=== PATIENT | male | born 1945 | race Caucasian/White ===

== ENCOUNTER 2021-03-26 12:40 | Emergency (ER) | payer MEDICARE ==
[~2021-03-26] VITALS: Ht 177.8 cm; Wt 72.6 kg
[2021-03-26] MEDS ORDERED: AMLODIPINE BES2.5 MG PO (13:10)
[2021-03-26] MEDS ORDERED: METHIMAZOLE5 MG PO (13:11)
[2021-03-26] MEDS ORDERED: GABAPENTIN400 MG PO (13:12)
[2021-03-26] MEDS ORDERED: ARTHRITIS PAIN100 GM TOP (13:13)
[2021-03-26] MEDS ORDERED: METHOCARBAMOL750 MG PO (13:14)
--- NOTE | 2021-03-26 14:04 | EKG ---
[facility] [address] [facility] [place] [address] Signed Sinus bradycardia Right bundle branch block Abnormal ECG No previous ECGs available Confirmed by KANG BAER MD ([id number]) on 03/26/2021 2:04:04 PM Electronically Signed By: KANG BAER MD 03/26/21 1404 PATIENT NAME: TANGELA SAUCEDO JOHN COLEMAN Electrocardiogram DATE OF : 41 PHYSICIAN: KANG BAER MD REPORT #: [id number] REPORT IS CONFIDENTIAL AND NOT TO BE RELEASED WITHOUT AUTHORIZATION
[2021-03-26] MEDS ORDERED: MELOXICAM7.5 MG PO (16:10)
[2021-03-26] MEDS ORDERED: MECLIZINE HCL25 MG PO (16:12)
[2021-03-26] MEDS ORDERED: ALEVE220 MG PO (16:13)
[2021-03-26] MEDS ORDERED: EPIN0.3P (16:14)
[2021-03-26] MEDS ORDERED: LIPITOR40 MG PO (16:28)
== END 2021-03-26 16:58 | disposition home or self-care (01) ==
LOC: ED 12:40
DX: I65.22 Occlusion and stenosis of left carotid artery (principal); I10 Essential (primary) hypertension; F17.200 Nicotine dependence, unspecified, uncomplicated; Z91.030 Bee allergy status; Z88.8 Allergy status to other drugs, medicaments and biological substances; Z79.899 Other long term (current) drug therapy
CPT/HCPCS: 70450; 80053; 84443; 85025; 93005; 93010; 93880; 99284-25

== ENCOUNTER 2021-04-02 18:43 | Emergency (ER) | payer MEDICARE ==
[~2021-04-02] VITALS: Ht 177.8 cm; Wt 68.0 kg
[~2021-04-02 18:43] MED LIST: ALEVE220 MG PO; AMLODIPINE BES2.5 MG PO; ARTHRITIS PAIN100 GM TOP; EPIN0.3P; GABAPENTIN400 MG PO; LIPITOR40 MG PO; MECLIZINE HCL25 MG PO; MELOXICAM7.5 MG PO; METHIMAZOLE5 MG PO; METHOCARBAMOL750 MG PO
--- OUTSIDE RECORDS SUMMARY | 2021-04-02 18:52 | XMS ---
PreManage Notification: TANGELA SAUCEDO Security Validation Intern Events No recent Security Events currently on file CRITERIA MET - [facility] - 2 Visits in 30 Days CARE PROVIDERS There are no care providers on record at this time. [place] has no Care Guidelines for this patient. [place] VISIT COUNT (12 MO.) 2 [facility] TOTAL 2 NOTE: Visits indicate total known visits. ED/C VISIT TRACKING (12 MO.) [facility] COMPLAINT: - BEE STING/ALLERGIC REACTION 03/26/2021 12:[address] [facility] [place] TYPE: Emergency COMPLAINT: - DIZZINESS, OFF BALANCE DIAGNOSES: - Other residential (current) drug therapy - Bee allergy status - Essential (primary) hypertension - Dizziness and giddiness - Nicotine dependence, unspecified, uncomplicated - Occlusion and stenosis of left carotid artery - Allergy status to other drugs, medicaments and biological substances INPATIENT VISIT TRACKING (12 MO.) No inpatient visits to display in this time frame [email or web address]
== END 2021-04-02 20:41 | disposition home or self-care (01) ==
LOC: ED 18:43
DX: T63.441A Toxic effect of venom of bees, accidental (unintentional), initial encounter (principal); I10 Essential (primary) hypertension; F17.200 Nicotine dependence, unspecified, uncomplicated; Z91.030 Bee allergy status; Z88.8 Allergy status to other drugs, medicaments and biological substances; Z79.899 Other long term (current) drug therapy
CPT/HCPCS: 99282; J7510

== ENCOUNTER 2022-03-22 13:50 | Inpatient (IN) | payer OTHER ==
[~2022-03-22] VITALS: Ht 177.8 cm; Wt 59.4 kg
[~2022-03-22 13:50] MED LIST changes: -ARTHRITIS PAIN100 GM TOP; +ARTHRITIS PAIN150 GM TOP; +MECLIZINE HCL12.5 MG PO; -MECLIZINE HCL25 MG PO
--- OUTSIDE RECORDS SUMMARY | 2022-03-22 14:13 | XMS ---
PreManage Notification: TANGELA SAUCEDO Security Racing Manager Events No recent Security Events currently on file CRITERIA MET - Group Notification CARE PROVIDERS There are no care providers on record at this time. [place] has no Care Guidelines for this patient. [place] VISIT COUNT (12 MO.) 3 [facility] TOTAL 3 NOTE: Visits indicate total known visits. ED/UCC VISIT TRACKING (12 MO.) 03/22/2022 13:52 [facility] [place] TYPE: Emergency COMPLAINT: - FATIGUE, COUGH, UNSTEADY 04/02/2021 18:44 [facility] [place] TYPE: Emergency COMPLAINT: - BEE STING/ALLERGIC REACTION DIAGNOSES: - Bee allergy status - Essential (primary) hypertension - Toxic effect of venom of bees, accidental (unintentional), initial encounter - Other alf (current) drug therapy - Allergy status to other drugs, medicaments and biological substances - Nicotine dependence, unspecified, uncomplicated 03/26/2021 12:42 [facility] [place] TYPE: Emergency COMPLAINT: - DIZZINESS, OFF BALANCE DIAGNOSES: - Other terminal gauger (current) drug therapy - Bee allergy status - Essential (primary) hypertension - Dizziness and giddiness - Nicotine dependence, unspecified, uncomplicated - Occlusion and stenosis of left carotid artery - Allergy status to other drugs, medicaments and biological substances INPATIENT VISIT TRACKING (12 MO.) No inpatient visits to display in this time frame [id number]
[2022-03-22] MEDS ORDERED: CLOPIDOGREL75 MG PO (14:30)
--- NOTE | 2022-03-22 18:00 | NUR ---
REPORT RECEIVED FROM CHALINO GANN.
--- NOTE | 2022-03-22 18:47 | NUR ---
PT BROUGHT TO ROOM 129 BY IVON PERALES. PT ALERT, ORIENTED, AND ABLE TO MOVE FROM GURNEY TO BED WITH LITTLE ASSISTANCE. PT SOB WHEN DONE, BUT ABLE TO REBOUND QUICKLY WHEN PLACED BACK ON BIPAP. PT SLEPT THROUGH SOME OF ADMISSION INTAKE, WITH QUESTIONS BEING COMPLETED BY YASEMIN. PT IN UNDERWEAR, NONSKID SOCKS. SIDE RAILS UP, CALL LIGHT WITHIN REACH. REMAINS IN ROOM WITH PT.
--- NOTE | 2022-03-22 19:25 | NUR ---
PT RESTING IN BED AT THIS TIME AWAKE AND ALERT ON THE BIPAP, FIO2 50%. SPO2 MAINTAINING AT 92-96%. PT IV'S FLUSHING EASILY, PT REPORTS BREATHING HAS IMPROVED, PT ORIENTED X4. PT REPORTS NO NEEDS AT THIS TIME WHEN ASKED AND REMAINS RESTING IN BED, BED ALARM ON, CALL LIGHT IN REACH, PT'S IN ROOM, WILL CONTINUE PLAN OF CARE.
--- NOTE | 2022-03-22 20:21 | NUR ---
PT LAYING IN BED ON THE BIPAP, PT AWAKE AND ALERT AT THIS TIME, SPO2 90-94%. PT VITALS TAKEN, TEMP OF 100.2 OBTAINED AXILLARY. PT REPORTS FEELING WARM WHEN ASKED. PT ASSESSMENT COMPLETED AT THIS TIME (SEE CHART). PT ALERT AND ORIENTED X4, HEART RYTHM TACHYCARDIC AND IRREGULAR, LUNGS CLEAR IN UPPER LOBES AND DIMINISHED WITH FINE CRACKLES IN THE BASES BILATERALLY. PT RESPIRATIONS LABORED WHILE ON BIPAP, PT REPORTS BREATHING HAS IMPROVED. PT RADIAL PULSES STRONG, PEDAL PULSES +1, NO EDEMA PRESENT. PT DENIES N&T. PT APPEARS RESTLESS IN BED AT THIS TIME BUT DENIES HAVING ANY PAIN. PT REPOSITIONED IN BED WITH ASSISTANCE FROM CHALINO DREW. SCHEDULED PO MEDICATION THEN ADMINISTERED (SEE MAR). PT ABLE TO MAINTAIN SPO2 OF 88-90% ON 6L O2 NC WHILE TAKING PO MEDICATION. PT PLACED BACK ON BIPAP AND REMAINS IN BED RESTING. NO FURTHER NEEDS REPORTED AT THIS TIME, CALL LIGHT IN REACH, BED IN LOWEST POSITION, BED ALARM ON, PT'S IN ROOM, WILL CONTINUE PLAN OF CARE.
--- NOTE | 2022-03-22 20:46 | NUR ---
PT REMOVED BIPAP AT THIS TIME, PT SITTING UP IN BED AWAKE AND ALERT. PT PLACED ON 6L OXYMASK MOMENTARILY HE REQUESTED A BREAK FROM THE BIPAP. SPO2 NOTED TO SLOWLY DECREASE FROM 94 DOWN TO 87-88% AND MAINTAIN. RESPIRATIONS NOTED TO BE LABORED, PT REPORTS BREATHING FEELS IMPROVED AND DENIES SHORTNESS OF BREATH WHEN ASKED. PT PLACED BACK ON THE BIPAP AT IT'S PREVIOUS SETTINGS. PT EDUCATED ON PURPOSE OF BIPAP, PT WILLING TO LEAVE BIPAP ON. PT REPORTS NO FURTHER NEEDS AT THIS TIME WHEN ASKED AND IS NOW RESTING IN BED SITTING UP. CALL LIGHT IN REACH, BED IN LOWEST POSITION, BED ALARM ON, WILL CONTINUE PLAN OF CARE.
--- NOTE | 2022-03-22 21:15 | NUR ---
DR. GUY UPDATED ON PT REGARDING HEART RATE, TEMPERATURE OF 100.2, AND SHORTNESS OF BREATH/RESTLESSNESS WHILE ON THE BIPAP. NEW ORDERS GIVEN TO ADMINISTER 25MG TOPROL XL ONCE AND TO ADMINISTER 1-2MG MORHPINE IV Q4PRN. WILL CONTINUE PLAN OF CARE.
--- NOTE | 2022-03-22 23:10 | NUR ---
PT SLEEPING IN BED AT THIS TIME ON THE BIPAP. SETTINGS UNCHANGED, SPO2 90-94%. RESPIRATIONS NOTED, PT IN NO APPARENT DISTRESS AT THIS TIME, NO NEEDS ASSESSED, WILL CONTINUE PLAN OF CARE.
--- NOTE | 2022-03-23 00:36 | NUR ---
PT LAYING IN BED SLEEPING ON THE BIPAP AT PREVIOUS SETTINGS OF 50% FIO2, 16/8. PT SPO2 92%. PT AWOKE BRIEFLY AT THIS TIME AND REPORTED NO NEEDS. PT HEAD OF BED LOWERED FOR COMFORT. AFTERWARDS VITALS TAKEN, PT AFEBRILE. ASSESSMENT THEN COMPLETED (SEE CHART). PT HEART RATE REMAINS IRREGULAR, LUNGS CLEAR IN UPPER LOBES BILATERALLY, DIMINISHED WITH CRACKLED IN THE RIGHT BASE AND DIMINISHED WITH FINE CRACKLES IN THE LEFT BASE. ACTIVE BOWEL TONES PRESENT. RADIAL PULSES STRONG, PEDAL PULSES +1, BRISK CAPILLARY REFILL PRESENT. PT BACK TO SLEEP AT THIS TIME AND IS IN NO APPARENT DISTRESS. CALL LIGHT WITHIN REACH, BED IN LOWEST POSITION, BED ALARM ON, PT'S IN ROOM SLEEPING IN THE RECLINER, WILL CONTINUE PLAN OF CARE.
--- NOTE | 2022-03-23 02:05 | NUR ---
BIPAP ALARMING, PT LAYING IN BED SLEEPING, BIPAP NOTED TO BE OFF OF FACE. PT AWOKE EASILY AND REPORTED NO NEEDS WHEN ASKED. BIPAP PLACED BACK ON PT. BIPAP ON AT PREVIOUS SETTINGS, SPO2 92-93%. PT REMAINS RESTING IN BED AND IS NOW BACK TO SLEEP, CALL LIGHT IN REACH, BED IN LOWEST POSITION, WILL CONTINUE PLAN OF CARE.
--- NOTE | 2022-03-23 04:07 | NUR ---
PT LAYING IN BED AWAKE AND ALERT ON THE BIPAP. RT IN ROOM COMPLETING DUONEB. PT APPEARS RESTLESS AND REPORTS SHORTNESS OF BREATH WHEN ASKED. PT REPORTS BREATHING FEELS IMPROVED FROM WHEN HE FIRST ARRIVED. VITALS TAKEN (SEE CHART). PRN MORPHINE ADMINISTERED AFTERWARDS FOR SHORTNESS OF BREATH. ASSESSMENT THEN COMPLETED (SEE CHART). AFTER ASSESSMENT PT REPORTS NO NEEDS AND DENIES THE NEED TO VOID. PT REMAINS RESTING IN BED WITH EYES CLOSED AT THIS TIME, CALL LIGHT IN REACH, BED IN LOWEST POSITION, BED ALARM ON, WILL CONTINUE PLAN OF CARE.
--- NOTE | 2022-03-23 05:22 | NUR ---
PT LAYING IN BED SLEEPING ON THE BIPAP AT THIS TIME. SETTINGS UNCHANGED, SPO2 92-95%. PT IN NO APPARENT DISTRESS, RESPIRATIONS NOTED, PT LEFT UNDISTURBED AT THIS TIME. CALL LIGHT IN REACH, BED IN LOWEST POSITION, BED ALARM ON, WILL CONTINUE PLAN OF CARE.
--- NOTE | 2022-03-23 05:52 | NUR ---
PT LAYING IN BED AWAKE AND ALERT AT THIS TIME. PT ASKED IF HE NEEDED TO VOID, PT STATED YES. PT ASSISTED UP TO USE THE URINAL. PT 1 PERSON ASSIST, PT ABLE TO VOID 100 ML OF CONCENTRATED URINE, HR NOTED TO INCREASE TO THE 130'S WHILE STANDING, PT DENIED SHORTNESS OF BREATH WHILE ON THE BIPAP. PT NOW BACK IN BED RESTING AND REPORTS NO FURTHER NEEDS. CALL LIGHT WITHIN REACH, BED IN LOWEST POSITION, WILL CONTINUE PLAN OF CARE.
--- NOTE | 2022-03-23 06:20 | NUR ---
PT PLACED ON THE OXYMASK PT REQUESTED A BREAK FROM THE BIPAP. OXYMASK TITRATED UP TO 10L TO MAINTAIN SPO2 OF 90-92%. PT DENIES SHORTNESS OF BREATH WHEN ASKED, PT REPORTS NO FURTHER NEEDS AT THIS TIME, CALL LIGHT WITHIN REACH, BED IN LOWEST POSTIION, WILL CONTINUE PLAN OF CARE.
--- NOTE | 2022-03-23 06:34 | NUR ---
PT LAYING IN BED SLEEPING ON THE OXYMASK AT 10L. SPO2 AT 87-88% AND MAINTAINING. PT AWOKE EASILY AND WAS INFORMED THAT THE BIPAP WOULD BE PLACED BACK ON. BIPAP PLACED BACK AT 16/8 FIO2 NOW AT 40%. SPO2 MAINTAINING AT 91%. PT REPORTS NO NEEDS WHEN ASKED AND RETURNED BACK TO SLEEP, WILL CONTINUE PLAN OF CARE. CALL LIGHT IN REACH, BED IN LOWEST POSITION, BED ALARM ON.
--- NOTE | 2022-03-23 07:55 | NUR ---
CHECKED ON PT. LAYING IN BED WITH NO COVERS ON AND BIPAP IN PLACE. STATES HE IS COMFORTABLE AND FEELS BETTER THAN YESTERDAY. IN ROOM AND STATES SHE ALSO FEELS BETTER TODAY AND WILL BE TAKING THEIR TRUCK HOME SHORTLY TO THEIR SON.
--- NOTE | 2022-03-23 08:23 | NUR ---
PATIENT RESTING IN BED, BIPAP IN PLACE, VITALS CHARTED. IN ROOM. ICE CHIPS PROVIDED PER REQUEST. CALL [facility] IN REACH
--- NOTE | 2022-03-23 08:38 | NUR ---
TRIED PT ON NASAL CANULA AND WAS ABLE TO HOLD SATS FOR APPROX 5 MINS THEN COULD NOT MAINTAIN SATS >90 ON 15L OXY MASK. PLACED BACK ON 45% BIPAP AND IMMEDIATLY TO 90'S. PT UNCOMFORTABLE IN BED BUT DENIES WANTING TO LAY FLATTER HE IS SITTING STRAIGHT UP IN BED. DR GUY IN ROOM DISCUSSING WITH PT AND . ANSWERED WIFES QUESTIONS AFTER DR GIBSON. IS WRITING THINGS DOWN TO TELL THEIR SON.
--- NOTE | 2022-03-23 09:43 | NUR ---
ASSISTED PT TO STAND AT BEDSIDE AND USE URINAL. PT NOTED TO HAVE HAVE CONCENTRATED 200ML URINE OUT. ALSO NOTED TO HAVE RUN OF SVT HR IN 150'S, METOPROLOL DISCONTINUED, WILL DISCUSS WITH .
--- NOTE | 2022-03-23 12:09 | NUR ---
PT CONTINUES TO REST WITH EYES CLOSED AND BIPAP IN PLACE. TOELRATING WELL. HAS GONE HOME.
--- NOTE | 2022-03-23 12:16 | NUR ---
PATIENT RESTING IN BED, BIPAP IN PLACE. VITALS CHARTED. CALL LIGHT IN EASY REACH
--- NOTE | 2022-03-23 13:52 | NUR ---
PT AWAKE AND WANTED THE BIPAP OFF FOR A LITTLE WHILE. MAINTAINING >90 ON 12L OXY MASK, HE IS A MOUTH BREATHER. GIVEN SIPS OF ICE WATER AND ORDERED A SANDWHICH FOR LUNCH. PT STATES HE DOES NOT NEED TO USE URINAL ATT.
--- NOTE | 2022-03-23 14:46 | NUR ---
PT ATE HALF A SANDWICH FOR LUNCH AND DRANK A MILK, THE FIRST OF WHICH HE SPILLED IN HIS BED. STATES HE HASN'T EATEN IN 3-4 DAYS DUE TO NOT FEELING WELL. AFTER EATING ASSISTED PT TO RESTROOM, TOLERATED OK ON 6 LNC BUT PLACED BACK ON 12L OXYMASK FOR SIDE LAYING ECHO, SATS >90. PT HAD 275ML DARK URINE OUT.
--- NOTE | 2022-03-23 15:24 | NUR ---
ADMINISTERED SCHEDULED GABAPENTIN, PT THEN HAD A COUGHING FIT WHICH HE WAS ABLE TO COUGH UP A LARGE QTY GREEN\YELLOW SPUTUM. RT IN ROOM TO DO NEB TREATMENT.
[2022-03-23] MEDS ORDERED: VENTOLIN HFA18 GM INH (16:45)
[2022-03-23] MEDS ORDERED: ADULT ASPIRIN R81 MG PO (16:46)
[2022-03-23] MEDS ORDERED: REFRESH TEARS15 ML OP (16:54)
--- NOTE | 2022-03-23 17:02 | NUR ---
PT SITTING UPRIGHT IN BED TALKING WITH . PT DENIES CONCERNS AND SATS ARE 98 ON OXY MASK. ASSISTED TO STAND AT BEDSIDE TO USE URINAL. 160 DARK URINE OUT.
--- NOTE | 2022-03-23 19:06 | EKG ---
[facility] [address] [place] [address] Signed Sinus tachycardia with premature atrial complexes Right bundle branch block Abnormal ECG When compared with ECG of 26-MAR-2021 13:41, premature atrial complexes are now present Vent. rate has increased BY 63 BPM Confirmed by KANG BAER MD ([id number]) on 03/23/2022 7:06:31 PM Electronically Signed By: KANG BAER MD 03/23/22 1906 PATIENT NAME: LEWISTANGELA JOHN COLEMAN Electrocardiogram DATE OF : 41 PHYSICIAN: KANG BAER MD REPORT #: [id number] REPORT IS CONFIDENTIAL AND NOT TO BE RELEASED WITHOUT AUTHORIZATION
--- NOTE | 2022-03-23 19:18 | NUR ---
REPORT RECEIVED FROM BEN RN, WILL CONTINUE PLAN OF CARE.
--- NOTE | 2022-03-23 19:55 | NUR ---
PT LAYING IN BED ON THE BIPAP SLEEPING. SETTINGS AT 16/8, FIO2 45%, SPO2 96%. PT AWOKE EASILY AT THIS TIME AND DENIED ANY PAIN OR SHORTNESS OF BREATH WHEN ASKED. PT VITALS TAKEN AT THIS TIME AND ASSESSMENT COMPLETED (SEE CHART). PUT AWAKE AND ALERT, HEART RYTHM REGULAR, LUNGS DIMINISHED IN THE RIGHT UPPER LOBE AND DIMINISHED WITH CRACKLES IN THE RIGHT BASE. CLEAR/SHALLOW IN THE LEFT UPPER LOBE AND DIMINISHED WITH FINE CRACKLES IN THE LEFT BASE. ABDOMEN SOFT, BOWEL TONES ACTIVE. PULSES STRONG, CAPILLARY REFILL BRISK. PT DENIES N&T. PT REPORTS NO FURTHER NEEDS AND RETURNED BACK TO SLEEP, FIO2 TITRATED DOWN TO 40% ON THE BIPAP, SPO2 REMAINS AT 95-96%. WILL CONTINUE PLAN OF CARE. CALL LIGHT IN REACH, BED IN LOWEST POSITION, PT'S IN ROOM IN THE BEDSIDE RECLINER.
--- NOTE | 2022-03-23 21:04 | NUR ---
PT IN BED SLEEPING ON THE BIPAP AT PREVIOUS SETTINGS, SPO2 94-96%. PT AWOKE EASILY AT THIS TIME. BIPAP REMOVED, PT PLACED ON 8L O2 HIGHFLOW NC. SPO2 MAINTAINING AT 90-91%. PT ALERT AND ORIENTED X4, DENIES ANY PAIN AT THIS TIME AND REPORTS HIS BREATHING FEELS IMPROVED FROM WHEN HE FIRST ARRIVED. VITALS TAKEN AND SCHEDULED PO AND IV MEDICATIONS ADMINISTERED (SEE MAR). IV ABX NOW INFUSING AT ORDERED RATE. PT UP TO THE BEDSIDE TO VOID INTO URINAL, 300ML CONCENTRATED URINE. PT ABLE TO GET BACK INTO THE BED AND IS NOW RESTING. PT REPORTS NO NEEDS AT THIS TIME WHEN ASKED, PT REMAINS ON 8L O2 HIGHFLOW NC, SPO2 90-91%. IV ABX INFUSING. CALL LIGHT IN REACH, BED IN LOWEST POSITION, PT'S REMAINS IN ROOM AT THE BEDSIDE RECLINER, WILL CONTINUE PLAN OF CARE.
--- NOTE | 2022-03-23 21:30 | NUR ---
IV ABX COMPLETED, PT SALINE LOCKED. PT REMAINS ON 8L O2 HIGHFLOW NC, SPO2 92%. PT DENIES SHORTNESS OF BREATH, RESPIRATIONS UNLABORED. PT REPORTS NO FURTHER NEEDS AT THIS TIME AND REMAINS RESTING IN BED. CALL LIGHT IN REACH, BED IN LOWEST POSITION.
--- NOTE | 2022-03-23 22:30 | NUR ---
CALL LIGHT USED, PT STATED HE SPILLED HIS CUP OF WATER. PT AWAKE AND ALERT LAYING IN BED ON 8L O2 HIGHFLOW NC, 92% SPO2. PT RESPIRATIONS UNLABORED, PT DENIES SHORTNESS OF BREATH. LINENS CHANGED, PT NOW RESTING IN BED AND REPORTS NO FURTHER NEEDS. ICE WATER PROVIDED, CALL LIGHT IN REACH, WILL CONTINUE PLAN OF CARE.
--- NOTE | 2022-03-23 23:35 | NUR ---
PT LAYING IN BED SLEEPING, PT TITRATED DOWN TO 6L O2 HIGHFLOW NC, SPO2 MAINTAINING AT 94-95% NOW. PT IN NO APPARENT DISTRESS, NO NEEDS ASSESSED, PT REMAINS SLEEPING, RESPIRATIONS UNLABORED, WILL CONTINUE PLAN OF CARE.
--- NOTE | 2022-03-24 00:05 | NUR ---
PT LAYING IN BED SLEEPING ON 6L O2 HIGHFLOW NC. SPO2 92%, RESPIRATIONS UNLABORED. PT AWOKE BRIEFLY AND DENIED ANY NEEDS WHEN ASKED. VITALS TAKEN AND ASSESSMENT COMPLETED (SEE CHART). PT RETURNED BACK TO SLEEP SHORTLY AFTER. NO FURTHER NEEDS ASSESSED AT THIS TIME, CALL LIGHT IN REACH, WILL CONTINUE PLAN OF CARE.
--- NOTE | 2022-03-24 01:15 | NUR ---
pt O2 SAT 85% ON 6L NC. PER PRIMARY RN pt PLACED BACK ON BiPAP, TOLERATED WELL. NO REQUESTS CALL LIGHT WITHIN REACH.
--- NOTE | 2022-03-24 02:40 | NUR ---
PT LAYING IN BED SLEEPING ON THE BIPAP AT PREVIOUS SETTINGS. SPO2 94%. PT RESPIRATIONS NOTED, PT IN NO APPARENT DISTRESS AND WAS LEFT UNDISTURBED. CALL LIGHT IN REACH, WILL CONTINUE PLAN OF CARE.
--- NOTE | 2022-03-24 03:40 | NUR ---
PT USED CALL LIGHT. PT ON THE BIPAP AT PREVIOUS SETTINGS, SPO2 94-95%. PT STATED HE NEEDED TO VOID. PT USED THE URINAL TO VOID 275ML, MINIMAL ASSISTANCE NEEDED. PT GIVEN A DRINK OF WATER AND THEN PLACED BACK ON THE BIPAP AT ITS PREVIOUS SETTINGS. VITALS TAKEN AND ASSESSMENT COMPLETED (SEE CHART). PT LUNGS CLEAR IN UPPER LOBES AND DIMINISHED/FINE CRACKLES IN THE BASES BILATERALLY. RT IN ROOM AT THIS TIME TO ADMINISTER DUONEB. PT REPORTS NO FURTHER NEEDS AND IS RESTING IN BED, WILL CONTINUE PLAN OF CARE. CALL LIGHT IN REACH, BED IN LOWEST POSITION.
--- NOTE | 2022-03-24 04:36 | NUR ---
PT SPO2 NOTED TO BE 88-89%, PT ON THE BIPAP AT 40%. FIO2 TITRATED UP TO 45%, SPO2 NOW MAINTAINING AT 90-91%. PT REMAINS ASLEEP ON THE BIPAP IN NO APPARENT DISTRESS. CALL LIGHT IN REACH, BED IN LOWEST POSITION.
--- NOTE | 2022-03-24 05:31 | NUR ---
PT LAYING IN BED SLEEPING ON THE BIPAP. SPO2 96%. PT IN NO APPARENT DISTRESS AT THIS TIME. PT FIO2 TITRATED DOWN TO 35%, SPO2 MAINTAINING AT 95-96%. PT AWOKE BRIEFLY AFTERWARDS AND REPORTED NO NEEDS, WILL CONTINUE PLAN OF CARE. CALL LIGHT IN REACH.
--- NOTE | 2022-03-24 06:26 | NUR ---
PT USED CALL LIGHT, PT ON THE BIPAP AT PREVIOUS SETTINGS, PT STATED HE NEEDED TO VOID. PT UP TO VOID AT THE BEDSIDE USING THE URINAL. ATTENDS CHANGED AT THIS TIME. PT TAKEN OFF BIPAP AND PLACED ON 8L O2 HIGHFLOW NC, SPO2 MAINTAINING AT 91-93%. PT NOW RESTING IN BED AND REPORTS NO FURTHER NEEDS, CALL LIGHT IN REACH, BED IN LOWEST POSITION, PT'S IN ROOM, WILL CONTINUE PLAN OF CARE.
--- NOTE | 2022-03-24 07:30 | NUR ---
rREPORT RECIEVED, CARE OF PT ASSUMED AT THIS TIME. PT AWAKE IN ROOM WITH AT BEDSIDE. DENIES PAIN OR SHORTNESS OF BREATH. SPO2 = 90% ON 8 L NC. PT AGREES TO GO BACK ON BIPAP AT THIS TIME WHILE WAITING FOR BREAKFAST
--- NOTE | 2022-03-24 07:41 | NUR ---
PATIENT AWAKE IN BED, BIPAP IN PLACE. IN ROOM. VITALS CHARTED AND ROOM TIDIED. PATIENT STATES "I'M READY TO GO HOME" WHEN ASKED HOW HE'S FEELING THIS MORNING. CALL LIGHT IN EASY REACH. NO OTHER NEEDS
--- NOTE | 2022-03-24 08:34 | NUR ---
IN ROOM FOR MEDICATION ADMINSITRATION AND ASSESSMENT. PT ALERT AND ORIENTED, ANSWERING ALL QUESTIONS APPROPRIATELY. LUNGS SOUND TIGHT AND DIMINISHED IN BILATERAL LUNG BASES. PT CURRENTLY ON 8 L NC WITH SPO2 = 93%. ALL DISTAL PULSES STRONG. PT SHORT OF BREATH WITH MILD ACTIVITY IN THE BED. IV ABX NOW INFUSING. PLAN OF CARE FOR DAY ESTABLISHED. CALL LIGHT WITHIN REACH. WILL CONTINUE TO MONITOR.
--- NOTE | 2022-03-24 09:10 | NUR ---
RT IN ROOM AT THIS TIME TO GIVE PT A BREATHING TREATMENT
--- NOTE | 2022-03-24 10:15 | NUR ---
HR OPERATIONS ADVISOR IN ROOM TO ASSESS PT AT THIS TIME.
--- NOTE | 2022-03-24 10:50 | NUR ---
PT UP AT BEDSIDE TO VOID INTO URINAL. WEAKNESS AND TACHYPNEA NOTED ON EXERTION. SPO2 AT 88% ON 6 L NC WHILE PT VOIDED. PT NOW BACK IN BED, TURNED OXYGEN UP TO 8 L TO HELP PT RECOOPERATE.
--- NOTE | 2022-03-24 11:23 | NUR ---
DR BAER IN TO ASSESS PT AT THIS TIME. PLAN OF CARE ESTABLISHED AND ALL PT AND 'S QUESTIONS ANSWERED.
[2022-03-24] MEDS ORDERED: NICORETTE4 M1 BUCCAL (11:31)
[2022-03-24] MEDS ORDERED: STIOLTO RESPIMAT4 GM INH (11:38)
--- NOTE | 2022-03-24 11:51 | NUR ---
PT AMBULATED TO BATHROOM TO HAVE BOWEL MOVEMENT. ON 12 L NC WITH AMBULATION. PT SHORT OF BREATH AND DIZZY WITH EXERTION. PT NOW BACK IN BED. ASSESSMENT COMPLETED. BACK ON 8 L NC. EATING LUNCH AT THIS TIME. CALL LIGHT WITHIN REACH. WILL CONTINUE TO MONITOR.
--- NOTE | 2022-03-24 13:43 | NUR ---
PT GIVEN INSULIN PER SLIDING SCALE FOR BLOOD GLUCOSE OF 241. DISCUSSED MEDICATION AND BLOOD SUGAR CHECKS WITH PT. UNDERSTANDING MINIMAL. WILL CONTINUE TO REINFORCE. CALL LIGHT WITHIN REACH. WILL CONTINUE TO MONITOR.
--- NOTE | 2022-03-24 15:37 | NUR ---
BEDBATH GIVEN, PATIENT WAS ABLE TO DO MOST OF HIS OWN CARE. LINEN CHANGED. CALL LIGHT IN EASY REACH. BACK IN ROOM AT THIS TIME.
--- NOTE | 2022-03-24 16:27 | NUR ---
IN ROOM FOR MED ADMINISTRATION AND ASSESSMENT. PT ALERT AND ORIENTED. AMUBLATED TO BATHROOM ON 10 L NC WITH ONE PERSON ASSIST. NOW BACK IN BED. AT BEDSIDE. CALL LIGHT WITHIN REACH. RT IN ROOM FOR BREATHING TX
--- NOTE | 2022-03-24 19:20 | NUR ---
REPORT RECEIVED FROM DAYSHIFT RN, PT RESTING IN BED AT THIS TIME ON THE HIGHFLOW NC AT 7L. SPO2 92-94%, PT DENIES SHORTNESS OF BREATH AT THIS TIME WHEN ASKED AND REPORTS NO NEEDS, CALL LIGHT WITHIN REACH, BED IN LOWEST POSITION, PT'S IN ROOM AT THE BEDSIDE, WILL CONTINUE PLAN OF CARE.
--- NOTE | 2022-03-24 21:05 | NUR ---
CALL LIGHT USED BY PT, PT REPORTS NEEDED TO USE THE BATHROOM TO VOID. PT OXYGEN TITRATED UP TO 15L VIA HIGHFLOW NC, PT ABLE TO WALK TO THE BATHROOM 1 PERSON ASSIST TO VOID. PT ASSISTED BACK TO THE BED AND IS NOW RESTING, PT DENIES SHORTNESS OF BREATH OR LIGHTHEADEDNESS, GAIT SLIGHTLY UNSTEADY. PT TITRATED BACK DOWN TO 8L O2 HIGHLOW NC, SPO2 92% AT REST. VITALS TAKEN AT THIS TIME (SEE CHART). SCHEDULED MEDICATIONS ADMINISTERED AT THIS TIME (SEE MAR), IV ABX INFUSING AT ORDERED RATE, PT RECEIVED 2 UNITS OF INSULIN PER SLIDING SCALE (SEE MAR). PT ASSESSMENT COMPLETED AFTERWARDS, PT ALERT AND ORIENTED X4, LUNGS CLEAR IN UPPER LOBES BILATERALLY, FINE CRACKLES IN THE BASES BILATERALLY, HEART RYTHM REGULAR, BOWEL TONES ACTIVE, PULSES STRONG, PT DENIES N&T TO EXTREMITIES. PT REPORTS NO FURTHER NEEDS AT THIS TIME AND IS NOW RESTING IN BED, IV ABX INFUSING. CALL LIGHT IN REACH, PT'S IN ROOM AT THE BEDSIDE, WILL CONTINUE PLAN OF CARE.
--- NOTE | 2022-03-24 22:50 | NUR ---
PT LAYING IN BED SLEEPING, 8L NC IN PLACE, SPO2 95%. PT IN NO APPARENT DISTRESS, RESPIRATIONS UNLABORED, PT LEFT UNDISTURBED. OXYGEN TITRATED DOWN TO 6L O2 HIGHFLOW NC. CALL LIGHT IN REACH, WILL CONTINUE PLAN OF CARE.
--- NOTE | 2022-03-25 00:55 | NUR ---
PT LAYING IN BED SLEEPING ON 6L O2 HIGHFLOW NC. SPO2 96. PT IN NO APPARENT DISTRESS, RESPIRATIONS UNLABORED. PT AWOKE BRIEFLY AND REPORTED NO NEEDS. VITALS TAKEN AND ASSESSMENT COMPLETED (SEE CHART). WILL CONTINUE PLAN OF CARE. CALL LIGHT IN REACH, BED IN LOWEST POSITION.
--- NOTE | 2022-03-25 02:18 | NUR ---
PT'S MONITORS NOTED TO BE OFF, PT FOUND STANDING UP AT THE BEDSIDE. PT STATED HE NEEDED TO VOID, PT INSTRUCTED TO USE HIS CALL LIGHT FOR ASSISTANCE. PT PLACED ON 15L HIGHFLOW NC. PT ABLE TO WALK TO THE BATHROOM AND VOID X1 WITH MINIMAL ASSISTANCE. PT GAIT STILL UNSTEADY. PT BACK TO BED, MONITORS PLACED BACK ON, PT TITRATED BACK DOWN TO 6L O2 NC, SPO2 92%. PT REPORTS NO FURTHER NEEDS AT THIS TIME AND IS NOW RESTING IN BED. CALL LIGHT IN REACH, BED IN LOWEST POSITION, WILL CONTINUE PLAN OF CARE.
--- NOTE | 2022-03-25 05:58 | NUR ---
PT SLEEPING IN BED ON 4L O2 NC, PT AWOKE AT THIS TIME AND SAT UP IN BED, SPO2 DECREASED, PT TITRATED UP TO 8L O2 NC. SCHEDULED MEDICATIONS ADMINISTERED AT THIS TIME (SEE DEC). PT REPORTS NO FURTHER NEEDS AND REMAINS RESTING IN BED, CALL LIGHT IN REACH, BED IN LOWEST POSITION.
--- NOTE | 2022-03-25 06:10 | NUR ---
PT REMAINS IN BED RESTING, NC AT 8L. SPO2 95%, PT TITRATED DOWN TO 6L O2 NC. NO FURTHER NEEDS ASSESSED AT THIS TIME, PT REMAINS RESTING IN BED, CALL LIGHT IN REACH.
--- NOTE | 2022-03-25 06:21 | NUR ---
PT AWAKE IN BED ALERT AND ORIENTED. METAL CRAFTS TEACHER IN ROOM DRAWING LABS. VITALS TAKEN AND ASSESSMENT COMPLETED (SEE CHART). PT REMAINS TITRATED DOWN FROM 6L NC TO 4L O2. ICE WATER PROVIDED, SPUTUM SAMPLE COLLECTED AND PROVIDED TO METAL CRAFTS TEACHER. PT REPORTS NO FURTHER NEEDS AND REMAINS RESTING IN BED. CALL LIGHT IN REACH, BED IN LOWEST POSITION. LAB NOTIFIED THIS RN AFTERWARDS THAT SPUTUM SAMPLE WAS MOSTLY SALIVA AND WOULD NOT SUFFICE FOR THE LAB. WILL CONTINUE PLAN OF CARE. SPUTUM SAMPLE TO BE SENT WHEN COLLECTED.
--- NOTE | 2022-03-25 06:40 | NUR ---
PT BEGINNING TO DESATURATE ON 6L NC. PT AWAKE AND ALERT SITTING UP IN BED AND DENIES SHORTNESS OF BREATH. PT O2 TITRATED UP TO 8L O2 NC. PT REPORTS NO FURTHER NEEDS AT THIS TIME, SPO2 90-92, WILL CONTINUE PLAN OF CARE. CALL LIGHT IN REACH.
--- NOTE | 2022-03-25 08:45 | NUR ---
PT ASSESSMENT AND MEDICATION ADMINISTRATION COMPLETED. PT ALERT AND ORIENTED, EATING BREAKFAST AT THIS TIME. DENIES PAIN OR SHORTNESS OF BREATH. PT SPO2 = 94% ON 6 L HIGH FLOW NC. FINE CRACKLES NOTED IN BILATERAL LUNG BASES. INSULIN GIVEN PER SLIDING SCALE (SEE EMAR). CALL LIGHT WITHIN REACH. DENIES FURTHER NEEDS AT THIS TIME.
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
--- NOTE | 2022-03-25 09:45 | NUR ---
PT RESTING IN BED. SLIGHTLY TACHYCARDIC WHILE AMBULATING BUT HEART RATE RETURNS TO THE 70S AT REST. CALL LIGHT WITHIN REACH. WILL CONTINUE TO MONITOR.
--- NOTE | 2022-03-25 12:10 | NUR ---
PATIENT ASSISTED TO BR FOR VOID. WASHCLOTHS PROVIDED FOR BEDBATH, PATIENT BACK TO BED FOR LUNCH. IN ROOM. CALL LIGHT IN REACH
--- NOTE | 2022-03-25 12:19 | NUR ---
DR BAER IN ROOM TO ASSESS PT. THIS RN AT BEDSIDE. PLAN OF CARE ESTABLISHED AT THIS TIME. NEGATIVE CLEANER DC'D. ALL PT QUESTIONS ANSWERED.
--- NOTE | 2022-03-25 13:26 | NUR ---
PT ARRIVES TO MS FLOOR VIA CHAIR WITH . VS STABLE, 6L VIA OXIMASK WITH SPO2 91-99%. PT UP IN CHAIR AND DENIES PAIN OR ANY FURTHER NEEDS. ENCOURAGED TO PROVIDE SELF CARE SHE IS ALSO SICK WITH UPI - STATES SHE WAS SEEN IN URGENT CARE YESTERDAY AND RECIEVED ABX.
--- NOTE | 2022-03-25 14:34 | NUR ---
RN IN ROOM TO ADMINISTER SCHEDULED MEDICAITONS. PT REQUESTS TO AMBULATE TO BATHROOM TO VOID. 02 EXTENSION TUBING CONNECTED AND PT TOLERATED AMBULATION WELL WITH OXYMASK ON. PT BACK TO BED WITH CALL LIGHT IN REACH.
--- NOTE | 2022-03-25 15:52 | NUR ---
RN ROUNDING ON PT - RESTING IN BED ON SIDE, RR [address] AT 6L. CALL LIGHT IN REACH.
--- NOTE | 2022-03-25 17:19 | NUR ---
RN IN ROOM TO ADMINISTER SCHEDULED MEDICATIONS. PT RESTING ON SIDE WITHOUT SOB UPON ENTERING. PT WAKES EASILY WITH TOUCH. 1 UNIT INSULIN ADMINISTERED. PT RR EVEN AND UNLABORED ON 6L OXIMASK, NON PRODUCTIVE COUGH NOTED. CALL LIGHT IN REACH. PT DENIES FURTHER NEEDS.
--- NOTE | 2022-03-25 18:57 | NUR ---
PT REQUESTS HOME "NIGHT TIME PAIN MED" FOR GENERALIZED MUSCLE/BACK ACHE - MD CALLED NO PRN PAIN MEDS AVAILABLE ON EMAR.
--- NOTE | 2022-03-25 19:20 | NUR ---
REPORT TAKEN ON PT . HE IS ALERT AND ORIENTED. ASSISTED TO THE BATHROOM. PT IS HOLDING ONTO ITEMS/DOORS TO KEEP A STEADY GAIT. REQUESTED HE CALL FO RASSIST WHEN UP FOR SAFETY. BED ALARM ON. CALL LIGHT IN REACH.
--- NOTE | 2022-03-26 04:09 | NUR ---
PT IS UP TO THE BATHROOM. HE DID NOT CALLL FOR ASSIST. HE WAS TRYING TO HOLD ON TO THE SIDE TABLE, THE WALL, THE SINK FOR STABILITY. PT DID VOID. HE WAS ASSISTED BACK TO BED BY STAFF. PT HAD TAKEN OFF HIS OXYGEN PRIOR TO GOING INTO THE BAHROOM. HIS SAT ON RETURN TO BED WAS 83% AND HE WAS SOB. O2 WITH NC PUT BACK ON. SATS UP TO 92 % ON 2 L. CALL LIGHT IN REACH.
--- NOTE | 2022-03-26 07:26 | NUR ---
REPORT RECEIVED FROM NIGHT RN - CARE PLAN REVIEWED.
--- NOTE | 2022-03-26 09:40 | NUR ---
RN IN ROOM TO ADMINISTER SCHEDULED MEDICATIONS AND ASSESS PT - PT SITTING UP IN BED AWAKE UPON ENTRY. PT NOW ON 2L VIA OXYMASK (FOR COMFORT) AND HOLDING 02 SATS IN LOW 90'S WITH BASELINE WORK OF BREATHING. MILD SOB NOTED WHEN PT REMOVES MASK TO TAKE MEDICATIONS. FINE CRACKLES NOTED IN BASES BILATERALLY. PT DENIES PAIN. RN CHECKED IN WITH SCRATCHER TENDER TO REVIEW HOUSING CONCERNS REGARDING DISEASE PROCESS AND DC PLAN - STATES UNDERSTANDING AND WILL CONTINUE TO ASSESS NEEDS.
--- NOTE | 2022-03-26 11:19 | NUR ---
RN ROUNDING ON PT - VISITING WITH PASTORAL CARE. NO DISTRESS NOTED. CALL LIGHT IN REACH.
--- NOTE | 2022-03-26 11:59 | NUR ---
RN IN ROOM TO ADMINISTER 1 UNIT INSULIN FOR CBG 168. BLOOD GLUCOSE MANAGED WELL WITH DIET WHILE INPATIENT, ENCOURAGED DM2 DIET WHILE AT HOME WITH PT. CALL LIGHT IN REACH, DENIES FURTHER NEEDS.
--- NOTE | 2022-03-26 12:09 | NUR ---
PT SITTING UP IN BED, O2 MASK IN USE. PT IS ALERT, ORIENTED AND SEEMED PLEASED I STOPPED BY. PT SAID HE FEELS MUCH BETTER, IS MISSING NOT BEING ABLE TO BE OUT OF DOORS. HAD GOOD VISIT, GAVE ENCOURAGEMENT, BLESSING AND G.POST. WILL FOLLOW
--- NOTE | 2022-03-26 15:00 | NUR ---
PATIENT AND I WALKED INTO HIS BATHROOM. PATIENT DID HIS OWN SHOWER BUT I DID STAND BY IN CASE HE NEEDED ME. CHANGED PATIENT'S BED LINENS. HE HAS ON A NEW GOWN AND SOCKS.
--- NOTE | 2022-03-26 15:11 | NUR ---
RN ROUNDING ON PT - VISITING WITH SON AT BEDSIDE, DENIES NEEDS. NO SOB NOTED, MASK IN PLACE. CALL LIGHT IN REACH.
--- NOTE | 2022-03-26 15:23 | NUR ---
MEDICATIONS DUE. PT GETTING UP TO SHOWER WITH [place] KAYE. EYE DROP APPLIED TO LEFT EYE, PT RESTS FOR 3 MINUTES WITH EYES CLOSED WITH EYE DROPS IN PLACE. PT UP TO SHOWER WITH [place]. NO ADDITIONAL REQUESTS OR COMPLAINTS. CALL LIGHT WITHIN REACH. PTS PRIMARY RN UPDATED.
--- NOTE | 2022-03-26 16:23 | NUR ---
PT BACK TO BED FROM LENGTHY SHOWER WITH TELEPHONE COLLECTOR. PT RECOVERED WITH 1.5L OXIMASK AFTER A FEW MINUTES REST. VERY FATIGUED NOW. ASSESSMENT COMPLETE - UNCHANGED CALL LIGHT IN REACH.
--- NOTE | 2022-03-26 17:19 | NUR ---
RN IN ROOM TO ADMINISTER SCHEDULED MEDICATIONS. PT VISITING WITH SON AT BEDSIDE. NO SOB NOTED, OXIMASK IN PLACE.
--- NOTE | 2022-03-26 19:30 | NUR ---
REPORT RECEIVED . IV FLUSHED. PT AWAKE AND ALERT SITTING UP IN BED. NO NEEDS AT THIS TIME.
--- NOTE | 2022-03-27 00:40 | NUR ---
PT IS SLEEPING QUIETLY . CALL LIGHT IN REACH.
--- NOTE | 2022-03-27 07:45 | NUR ---
Patient sleeping in bed, no distress. Patient is on 2L oxygen per nc, respirations even and non labored. No needs at this time. Personal supplies and call light within reach.
--- NOTE | 2022-03-27 07:48 | NUR ---
PT HAS BEEN MAINTAINED ON OXYGEN AT 2L PER NC. HE TAKES IT OFF TO GO TO THE BATHROOM AND FORGETS TO PUT IT BACK ON. SATS DROP LOW 84% ON ROOM AIR.
[2022-03-27] MEDS ORDERED: CEFPODOXIME PR200 MG PO (11:26)
[2022-03-27] MEDS ORDERED: METOPROLOL SUCC25 MG PO (11:27)
[2022-03-27] MEDS ORDERED: PREDNISONE20 MG PO (11:31)
[2022-03-27] MEDS ORDERED: ALBUTEROL2.5 MG/3 M INH (11:33)
[2022-03-27] MEDS ORDERED: NEBULIZER UNIT XX (11:36)
--- NOTE | 2022-03-27 12:56 | NUR ---
PT READY FOR DISCHARGE. VITAL SIGNS STABLE. ALL BELONGINGS TAKING OUTSIDE TO CAR BY PTS SIGNIFICAN OTHER. PT STEADY ON FEET. NORCO OXYGEN TANK PROVIDED TO PT. EXTENSIVE EDUCATION DONE WITH PT REGARDING HOME OXYGEN USE. PT IS ABLE TO REPEAT BACK INSTRUCTIONS AND VERBALIZES UNDERSANDING THAT OXGYEN IS FLAMABLE AND HE WILL NOT HAVE ANY OPEN FLAMES OR USE OXGYEN IN THE SHOP. PT TRANFERS SELF TO WHEELCHAIR, NO ASSISTANCE NEEDED. PT WHEELED FROM MED/SURG TO MEET FAMILY AT THE FRONT OF HOSPITAL. NO ADDITIONAL REQUESTS OR CONCERNS.
== END 2022-03-27 12:56 | disposition home or self-care (01) | DRG 177 ==
LOC: ED 13:50 → CCU 16:56 → MS 03-25 13:15
PROVIDERS: ADMIT Hospitalist; ATTEND Hospitalist
PROC: 5A09457 Assistance with Respiratory Ventilation, 24-96 Consecutive Hours, Continuous Positive Airway Pressure (ICD-10-PCS; principal; 2022-03-22)
DX: J15.6 Pneumonia due to other Gram-negative bacteria (principal); J96.21 Acute and chronic respiratory failure with hypoxia; J96.22 Acute and chronic respiratory failure with hypercapnia; J44.1 Chronic obstructive pulmonary disease with (acute) exacerbation; J44.0 Chronic obstructive pulmonary disease with (acute) lower respiratory infection; I47.1 Supraventricular tachycardia; Z20.822 Contact with and (suspected) exposure to COVID-19; J13 Pneumonia due to Streptococcus pneumoniae; R73.03 Prediabetes; I10 Essential (primary) hypertension; E78.5 Hyperlipidemia, unspecified; M54.50 Low back pain, unspecified; F17.200 Nicotine dependence, unspecified, uncomplicated; E05.90 Thyrotoxicosis, unspecified without thyrotoxic crisis or storm; I48.0 Paroxysmal atrial fibrillation; G89.29 Other chronic pain; I35.0 Nonrheumatic aortic (valve) stenosis; Z98.890 Other specified postprocedural states; Z91.030 Bee allergy status; Z91.048 Other nonmedicinal substance allergy status; Z79.899 Other long term (current) drug therapy
CPT/HCPCS: 36415; 36600; 71045; 80048; 80053; 82803; 83036; 83605; 83735; 83880; 85025; 87040; 87070; 87205; 87502; 93005; 93010; 93306; 94640; 94660; 94667; 94668; 94760; 96365; 97161; 99285-25; C9803; J0696; J1650; J1815; J1940; J2270; J2920; J2930; U0003

== ENCOUNTER 2022-06-18 10:59 | Emergency (ER) | payer OTHER, MEDICARE ==
[~2022-06-18] VITALS: Ht 177.8 cm; Wt 59.0 kg
[~2022-06-18 10:59] MED LIST changes: +ADULT ASPIRIN R81 MG PO; +ALBUTEROL2.5 MG/3 M INH; +CEFPODOXIME PR200 MG PO; +CLOPIDOGREL75 MG PO; +METOPROLOL SUCC25 MG PO; +NEBULIZER UNIT XX; +NICORETTE4 M1 BUCCAL; +PREDNISONE20 MG PO; +REFRESH TEARS15 ML OP; +STIOLTO RESPIMAT4 GM INH; +VENTOLIN HFA18 GM INH
--- OUTSIDE RECORDS SUMMARY | 2022-06-18 11:06 | XMS ---
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 [place] VISIT COUNT (12 MO.) 2 [facility] TOTAL 2 NOTE: Visits indicate total known visits. ED/UCC VISIT TRACKING (12 MO.) 06/18/2022 10:59 [facility] [place] TYPE: Emergency COMPLAINT: - CHEST PAIN, SOB, BODY PAIN, CONFUSION 03/22/2022 13:52 [facility] [place] TYPE: Emergency COMPLAINT: - FATIGUE, COUGH, UNSTEADY INPATIENT VISIT TRACKING (12 MO.) 03/22/2022 16:56 [facility] Shar[facility] [place] TYPE: Medical Surgical COMPLAINT: - ACUTE HYPOXIC RESPIRATORY FAILURE DIAGNOSES: - Pneumonia due to other Gram-negative bacteria - Other vermin exterminator (current) drug therapy - Acute and chronic respiratory failure with hypercapnia - Nicotine dependence, unspecified, uncomplicated - Paroxysmal atrial fibrillation - Low back pain, unspecified - Other specified postprocedural states - Nonrheumatic aortic (valve) stenosis - Acute respiratory failure with hypoxia - Pneumonia due to other Gram-negative bacteria - Pneumonia due to Streptococcus pneumoniae - Pneumonia due to Streptococcus pneumoniae - Hyperlipidemia, unspecified - Bee allergy status - Supraventricular tachycardia - Contact with and (suspected) exposure to COVID-19 - Supraventricular tachycardia - Chronic obstructive pulmonary disease with (acute) lower respiratory infection - Other group home (current) drug therapy - Other chronic pain - Acute and chronic respiratory failure with hypercapnia - Essential (primary) hypertension - Acute and chronic respiratory failure with hypoxia - Paroxysmal atrial fibrillation - Hyperlipidemia, unspecified - Low back pain, unspecified - Bee allergy status - Contact with and (suspected) exposure to COVID-19 - Other specified postprocedural states - Essential (primary) hypertension - Nicotine dependence, unspecified, uncomplicated - Prediabetes - Chronic obstructive pulmonary disease with (acute) exacerbation - Acute and chronic respiratory failure with hypoxia - Chronic obstructive pulmonary disease with (acute) exacerbation - Chronic obstructive pulmonary disease with (acute) lower respiratory infection - Thyrotoxicosis, 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
[2022-06-18] MEDS ORDERED: DECADRON6 MG PO (12:16)
--- NOTE | 2022-06-19 16:51 | EKG ---
[facility] [address] [place] [address] Signed Sinus rhythm with short NV with premature atrial complexes Right bundle branch block Abnormal ECG When compared with ECG of 22-MAR-2022 14:23, Vent. rate has decreased BY 50 BPM Confirmed by KANG BAER MD ([id number]) on 06/19/2022 4:50:53 PM Electronically Signed By: KANG BAER MD 06/19/22 1651 PATIENT NAME: TANGELA SAUCEDO Electrocardiogram DATE OF : 41 PHYSICIAN: KANG BAER MD REPORT #: [id number] REPORT IS CONFIDENTIAL AND NOT TO BE RELEASED WITHOUT AUTHORIZATION
== END 2022-06-18 16:21 | disposition home or self-care (01) ==
LOC: ED 10:59
DX: U07.1 COVID-19 (principal); J44.1 Chronic obstructive pulmonary disease with (acute) exacerbation; I10 Essential (primary) hypertension; F17.200 Nicotine dependence, unspecified, uncomplicated; Z91.030 Bee allergy status; Z91.040 Latex allergy status; Z79.899 Other long term (current) drug therapy
CPT/HCPCS: 36415; 71045; 80053; 84484; 85025; 87502; 93005; 93010; 94640; 96374; 99285-25; C9803; J2930; U0003

== ENCOUNTER 2022-07-15 20:05 | Inpatient (IN) | payer OTHER, MEDICARE ==
[~2022-07-15] VITALS: Ht 177.8 cm; Wt 60.8 kg
--- NOTE | 2022-07-15 11:30 | NUR ---
PERFORMED ADMIN ASSESSMENT. PT LUNGS ARE DIMINISHED THROUGHOUT, 02 IS 93% ON 5 ML OXYMASK. RESPIRATIONS ARE EVEN AND UNLABORED. PT IS SOMNOLENT AND ORIENTED ONLY TO WHERE HE IS LOCATED. PULSES ARE PRESENT THROUGHOUT BY PEDAL PULSES ARE WEAK. HEART HAS DISTANT HEART TONES. PT IS ON TELEMETRY WITH RATE IN 70'S BUT AN IRREGULAR RATE. IV ON LFT AC FLUSHES WELL WITH BRISK BLOOD RETURN, IV ON RT AC IS POSITIONAL BUT FLUSHES WELL WITH BRISK BLOOD RETURN. BOWEL TONES ARE ACTIVE IN ALL 4 QUADRANTS. PAIN VERBALLY STATES NOT IN PAIN. PT YASEMIN AT BEDSIDE. BED ALARM SET, CALL LIGHT WITHIN REACH, NO FURTHER NEEDS AT THIS TIME.
--- NOTE | 2022-07-15 11:35 | NUR ---
PT IS BROUGHT BACK FROM CT IN BED. PT RECEIVING OXYGEN VIA OXYMASK AT 6 L. PT IS SOMNOLENT AND LIMITED VERBAL RESPONSE. TELEMETRY RESUMED. PT AT BEDSIDE. CALL LIGHT WITHIN REACH, NO FURTHER NEEDS AT THIS TIME.
[~2022-07-15 20:05] MED LIST changes: +DECADRON6 MG PO; -EPIN0.3P; +EPIN0.3P IM; -REFRESH TEARS15 ML OP; +THERA TEARS1 EAC1 OU
--- OUTSIDE RECORDS SUMMARY | 2022-07-15 20:12 | XMS ---
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 EJanis VISIT COUNT (12 MO.) 3 [facility] TOTAL 3 NOTE: Visits indicate total known visits. ED/UCC VISIT TRACKING (12 MO.) 07/15/2022 20:05 [facility] Sharif OR TYPE: Emergency COMPLAINT: - CONFUSION 06/18/2022 10:59 [facility] Sharif [place] TYPE: Emergency COMPLAINT: - CHEST PAIN, SOB, BODY PAIN, CONFUSION DIAGNOSES: - COVID-19 - Latex allergy status - Other chest pain - Other senior living (current) drug therapy - Bee allergy status - Chronic obstructive pulmonary disease with (acute) exacerbation - Nicotine dependence, unspecified, uncomplicated - Essential (primary) hypertension 03/22/2022 13:52 [facility] Sharif [place] TYPE: Emergency COMPLAINT: - FATIGUE, COUGH, UNSTEADY INPATIENT VISIT TRACKING (12 MO.) 03/22/2022 16:[address] [facility] OR TYPE: Medical Surgical COMPLAINT: - ACUTE HYPOXIC RESPIRATORY FAILURE DIAGNOSES: - Pneumonia due to other Gram-negative bacteria - Pneumonia due to Streptococcus pneumoniae - Acute respiratory failure with hypoxia - Hyperlipidemia, unspecified - Bee allergy status - Pneumonia due to Streptococcus pneumoniae - Supraventricular tachycardia - Contact with and (suspected) exposure to COVID-19 - Chronic obstructive pulmonary disease with (acute) lower respiratory infection - Other senior living (current) drug therapy - Supraventricular tachycardia - Other chronic pain - Acute and chronic respiratory failure with hypercapnia - Acute and chronic respiratory failure with hypoxia - Paroxysmal atrial fibrillation - Essential (primary) hypertension - Low back pain, unspecified - Bee allergy status - Hyperlipidemia, unspecified - Other specified postprocedural states - Essential (primary) hypertension - Contact with and (suspected) exposure to COVID-19 - Prediabetes - Chronic obstructive pulmonary disease with (acute) exacerbation - Nicotine dependence, unspecified, uncomplicated - Acute and chronic respiratory failure with hypoxia - Chronic obstructive pulmonary disease with (acute) exacerbation - Thyrotoxicosis, unspecified without thyrotoxic crisis or storm - Other chronic pain - Chronic obstructive pulmonary disease with (acute) lower respiratory infection - Thyrotoxicosis, unspecified without thyrotoxic crisis or storm - Prediabetes - Other nonmedicinal substance allergy status - Other nonmedicinal substance allergy status - Nonrheumatic aortic (valve) stenosis - Pneumonia due to other Gram-negative bacteria - Other extermination supervisor (current) drug therapy - Nicotine dependence, unspecified, uncomplicated - Paroxysmal atrial fibrillation - Acute and chronic respiratory failure with hypercapnia - Other specified postprocedural states - Nonrheumatic aortic (valve) stenosis - Low back pain, unspecified [email or web address]
--- NOTE | 2022-07-15 22:28 | NUR ---
PT ARRIVED VIA STRETCHER FROM ER. TRANSFERRED WITH 2-3 PA FROM STRETCHER TO BED, STAND/PIVOT. PT PLACED ON TELEMETRY. OXYMASK IN PLACE AT 7 L. PT IS DROWSY BUT RESPONSIVE TO VERBAL DIRECTION. PT YASEMIN AT BEDSIDE. THIS RN COMPLETING ADMISSION. PT AND YASEMIN ORIENTED TO ROOM, CALL LIGHT WITHIN REACH.
--- NOTE | 2022-07-15 23:10 | NUR ---
DR FONSECA PLACED ORDERS FOR CT D/T POSITVE D-DIMER. pt DROWSY, AWAKENS TO VOICE. CPOX AND TELE IN PLACE, SINUS RHYTHM. SPO2 MD 90'S ON 6.5LOXYMASK. pt PLACED ON PORTABLE O2 AND TO CT AT THIS TIME, FLOAT CHALINO ADHIKARI TO GO WITH pt VIA SideStep STRETCHER. BEFORE LEAVING pt SWALLOWED SCHEDULED CARDIAC MEDICATION, SEE EMAR. YASEMIN REMAINS IN ROOM TO COMPLETE REMAINING ADMISSION QUESTIONS.
--- NOTE | 2022-07-16 03:08 | NUR ---
IN ROOM FOR VS, PATIENT ASSESSMENT, AND TO TAKE PT TO RESTROOM. PT IS NOW ALERT AND ORIENTED TO ALL BUT DATE AND TIME. PT LUNGS ARE DIMINISHED THROUGHOUT WITH WHEEZES IN UPPER LEFT QUADRANT. PT REMAINS ON TELEMETRY SHOWING SR W/HR 60-70'S. O2 IS AT 96 WHILE ON NC AT 4.5 LPM. PT REPORTS NO CHEST PAIN OR DIFFICULTY BREATHING. PT ABLE TO AMBULATE TO RESTROOM WITH 1PA, WEAK GAIT. OUTPUT OF 300 ML RECORDED. PT REPORTS NO PAIN, TINGLING/NUMBNESS IN EXTREMETIES, OR DIZZINESS. PULSES PRESENT THROUGHOUT BUT WEAK IN PEDAL PULSES. SKIN IS COLD/FRAGILE. PT AT BEDSIDE. CALL LIGHT WITHIN REACH, WATER INTAKE ENCOURAGED, NO FURTHER NEEDS AT THIS TIME.
--- NOTE | 2022-07-16 05:40 | NUR ---
PERFORMED CONTACT CENTER ASSOCIATE AND OBTAINED VS. PT IS RESTING IN BED COMFORTABLY AND AWAKENS TO VOICE, PT ABLE TO FOLLOW COMMANDS. SLEEPING AT BEDSIDE. CALL LIGHT WITHIN REACH, NO FURTHER NEEDS AT THIS TIME.
--- NOTE | 2022-07-16 05:42 | NUR ---
spoke to dylan from telepharmacy, per dylan, okay to give ordered 40mg iv solu-medrol undiluted over 3-5 minutes. read back to confirm.
--- NOTE | 2022-07-16 06:55 | NUR ---
PT ADMITTED AT 2228 FOR PNEUMONIA AND ACUTE EXACERBATION OF COPD. PT WAS SOMNOLENT AND SLEPT THROUGH BEGINNING OF THE NIGHT AND WAS ONLY ALERT TO HIS LOCATION. PT WAS ABLE TO FOLLOW COMMANDS AND NOW ALERT AND ORIENTED TO ALL BUT TIME AND DATE. VSS. PT HAD FEVER OF 100.7 BUT RESOLVED TO 98.2. PT LUNGS DIMINISHED THROUGHOUT W/WHEEZES IN ULL AND HAS TRANSITIONED FROM AN OXYMASK TO NC AT 4.5 L. O2 SATS REMAINED IN 90'S. PT AMBULATED TO RESTROOM WITH 1PA. GAIT WAS WEAK. OUTPUT SUFFICIENT. YASEMIN REMAINED AT BEDSIDE THROUGHOUT NIGHT.
--- NOTE | 2022-07-16 07:43 | NUR ---
REPORT RECIEVED, CARE RESUMED. PT RESTING IN BED WITH EYES CLOSED WHEN I ARRIVED. IN ARMCHAIR ALSO RESTING. ASSESSMENT DONE. RESP EVEN AND UNLABORED, O2 96% ON 4.5L PER NC. EXP WHEEZES THROUGHOUT. PT DENIES SOB BUT SAYS HIS CHEST FEELS A LITTLE TIGHT WHEN HE BREATHES IN. DR FONSECA IN ROOM TO SEE PT. NO FURTHER NEEDS AT THIS TIME.
--- NOTE | 2022-07-16 09:00 | NUR ---
Spoke with pt and . states they moved in the last year to [place] and live on their son's [address] in [place] . states pt is outside most of the day. 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 He does not use his 02 during the day, but returns to the home when he becomes sob. states he is not compliant and neither know what amount of 02 pt is currently using at home. states they both drive. She denies needs. I will call Kelsey and find out settings for 02.
--- NOTE | 2022-07-16 09:35 | NUR ---
PATIENT IN BED AFTER MEAL, VITALS AND I/O'S COMPLETED. PT HAS NO OTHER NEEDS AT THIS TIME. CALL LIGHT WITHIN REACH.
[2022-07-16] MEDS ORDERED: ALBUTEROL2.5 MG/3 M INH (10:42)
[2022-07-16] MEDS ORDERED: MULTI VITAMIN1 EACH PO (10:44)
[2022-07-16] MEDS ORDERED: REFRESH TEARS15 ML OU (10:47)
--- NOTE | 2022-07-16 10:57 | NUR ---
IV ABX FINISHED AND DISCONNECTED. PT SALINE LOCKET, SITTING UP IN BED WATCHING TV WITH . RESP EVEN AND UNLABORED. O2 SAT 95 % ON 4.5 L PER NC, RR 18. PT'S STATES THAT HE IS READY TO GO HOME. NO FURTHER NEEDS AT THIS TIME.
--- NOTE | 2022-07-16 11:36 | NUR ---
PHARMICIST MADELYN IN WITH PT. WILL CHECK BACK
--- NOTE | 2022-07-16 11:47 | NUR ---
O2 SAT. 86% SUSTAINED WHILE PT. EATING. O2 TITRATED FROM 4.5L TO 5L AND O2 SAT INCREASED TO 92%. WILL CONTINUE TO MONITOR.
[2022-07-16] MEDS ORDERED: LIPITOR40 MG PO (11:49)
[2022-07-16] MEDS ORDERED: LIDOCAINE5 GM TOP (11:51)
[2022-07-16] MEDS ORDERED: MECLIZINE HCL12.5 MG PO (11:51)
[2022-07-16] MEDS ORDERED: VOLTAREN ARTHRI20 GM TOP (11:53)
--- NOTE | 2022-07-16 11:53 | NUR ---
MED REC COMPLETE
--- NOTE | 2022-07-16 13:25 | NUR ---
PATIENT IN BED AFTER MEAL. IN ROOM. VITALS AND I/O'S COMPLETED. PT HAS NO OTHER NEEDS, CALL LIGHT WITHIN REACH.
--- NOTE | 2022-07-16 13:38 | NUR ---
ROUNDING ON PT. 02 SAT WAS 97% OF 5L. TITRATED TO 4L AND WILL CONTINUE TO MONITOR ON PULSE OX. HE DENIES SOB OR NEEDS AT THIS TIME. LEFT RESTING WITH CALL LIGHT IN REACH.
--- NOTE | 2022-07-16 17:29 | NUR ---
PATIENT LAYING IN BED AFTER DINNER. VITALS AND I/O CHARTED. PATIENT DOES NOT NEED FURTHER ASSISTANCE. CALL LIGHT WITHIN REACH.
--- NOTE | 2022-07-16 19:10 | NUR ---
RECEIVED REPORT FROM DELLA ALLRED. PT IS RESTING IN BED WITH YASEMIN AT BEDSIDE. CALL LIGHT WITHIN REACH. NO FURTHER NEEDS AT THIS TIME.
--- NOTE | 2022-07-16 20:05 | NUR ---
PT SITTING IN BED WATCHING TV. PT REQUESTS SNACK. PROVIDED PUDDING AND CHARIS CRACKERS, PT TOLERATED WELL WITH NO DIFFICULTY SWALLOWING. LADLE LINER HELPER PERFORMED. RECORDED VS AND I/O'S. CALL LIGHT WITHIN REACH, NO FURTHER NEEDS AT THIS TIME.
--- NOTE | 2022-07-16 22:00 | NUR ---
IN PT ROOM FOR ASSESSMENT AND STEAM FITTER SUPERVISOR MAINTENANCE. LAC IV FLUSHES WELL, WNL, BRISK BLOOD RETURN. PT DOES NOT REPORT ANY DIFFICULTY BREATHING. PT REPORTS 4/10 LOWER BACK PAIN THAT IS CHRONIC PER PT. OFFERED ICE PACK, WARM PACK, AND TYLENOL AND PT REFUSED. LUNG SOUNDS ARE COARSE AND WHEEZES PRESENT ON LEFT SIDE. PT RECEIVING 3 L O2 VIA NC AND TOLERATING WELL. PT REPORTS NO DIZZINESS, CHEST PAIN, NAUSEA, OR NUMBNESS/TINGLING. HEART TONES REMAIN DISTANT BUT SR AND HR 60-70'S. CALL LIGHT WITHIN REACH, NO FURTHER NEEDS AT THIS TIME.
--- NOTE | 2022-07-16 23:17 | NUR ---
PUMP BEEPING TO DISTAL OCCLUSION. PLACED TOWEL W/COBAN AT LAC IV SITE TO PREVENT BENDING AND OCCLUSION. PT EDUCATED ON IV SITE CARE DURING INFUSION. CALL LIGHT WITHIN REACH, NO FURTHER NEEDS AT THIS TIME.
--- NOTE | 2022-07-17 00:37 | NUR ---
PT RESTING IN BED WITH EYES CLOSED. RESPIRATIONS ARE REGULAR AND UNLABORED, NO SIGNS OF DISTRESS. CALL LIGHT WITHIN REACH. ALSO ASLEEP AT BEDSIDE.
--- NOTE | 2022-07-17 02:31 | NUR ---
PT RESTING IN BED WITH EYES CLOSED. RESPIRATIONS ARE EVEN AND UNLABORED, NO SIGNS OF DISTRESS. PT IS AWAKE AND COMFORTABLE AT BEDSIDE W/NO NEEDS. CALL LIGHT WITHIN REACH.
--- NOTE | 2022-07-17 02:56 | NUR ---
PUMP BEEPING, ZOSYN INFUSION HAS FINISHED. PUMP CLEARED AND VOLUME RECORDED, IV LINE CAPPED FOR REUSE, CHLORAHEXADINE CAP APPLIED TO IV SITE. IV SITE WNL. PT RESTING IN BED, CALL LIGHT WITHIN REACH, NO FURTHER NEEDS AT THIS TIME.
--- NOTE | 2022-07-17 06:00 | NUR ---
PT RESTING IN BED WITH AT BEDSIDE. IN ROOM FOR VS, I/O'S, ASSESSMENT. PT A&O TO ALL BUT DATE/TIME. NO ACUTE CHANGES TO PREVIOUS ASSESSMENT. PT REMAINS ON 3L NC WITH O2 SATS IN LOW 90'S. PT REPORTS NO SOB, OR DIFFICULTY BREATHING. HE STATES CHEST PAIN IS WNL FOR HIS CHRONIC COPD. PT AMBULATES W/STEADY GAIT AND STANDBY ASSISTANCE. LAC IV SITE WNL, ZOSYN NOW INFUSING AT 25 ML/HR. CALL LIGHT WITHIN REACH, NO FURTHER NEEDS AT THIS TIME.
--- NOTE | 2022-07-17 06:59 | NUR ---
UNEVENTFUL NIGHT FOR PT. PT ALERT AND ORIENTED TO ALL BUT TIME/DATE. PT LUNGS REMAIN COARSE THROUGHOUT BUT WHEEZES HEARD PREDOM ON LEFT SIDE. PT REPORTED NO SOB, DIZZINESS, CHEST PAIN. 3L NC W/O2 SATS IN LOW 90'S, OCCASIONAL PRODUCTIVE COUGH PRESENT W/WHITE SPUTUM. PT APPETITE IS NORMAL, GIVEN SNACKS OF PUDDING AND CHARIS CRACKERS. LAC IV PATENT AND SALINE LOCKED, SCHEDULED ABX. BED ALARM SET. URINAL AT BEDSIDE, STANDBY ASSIST TO BATHROOM. PT STATED PAIN IN LOWER BACK, BUT CHRONIC PER PT. TYLENOL, ICE PACK, & WARM PACK OFFERED BUT REFUSED.
--- NOTE | 2022-07-17 08:00 | NUR ---
WHEN I WENT IN TO UPDATE PATIENT WHITE BOARD PATIENT SAID HE NEEDED TO USE THE BATHROOM. SO WHILE I WAS WAITING I CHANGED HIS BED LINENS. HE ALSO DID HIS AM CARE. I ALSO ASKED HIS GUEST IF SHE WOULD LIKE TO HAVE A CUP OF COFFEE AND SHE SAID NO.
--- NOTE | 2022-07-17 09:00 | NUR ---
ASSESSMENT DONE, MORNING MEDS GIVEN. LUNG SOUNDS IMPROVED FROM YESTERDAY. O2 AT 3L PER NC O2 SAT 94%, RESP EVEN AND UNLABORED. PT REQUESTING A SHOWER, SHAVE, AND TO GO HOME THIS AFTERNOON. HE ALSO STATED HSI COFFEE JUST ISN'T THE SAME WITHOUT A CIGARETTE. i OFFERED THE NICOTINE LOZENGES BUT HE SAYS HE DOESN'T LIKE THEM AND DOESN'T NEED THEM, HE JUST MISSES IT WITH HIS COFFEE. PT SITTING AT EDGE OF BED, CALL LIGHT IN REACH, IV ABX INFUSING.
--- NOTE | 2022-07-17 11:48 | NUR ---
RT IN TO SEE PT AND START NEB TREATMENT. O2 90% ON 3l PER NC. PT SITTING UP AT BEDSIDE, IV ABX INFUSING. IN ROOM. CALL LIGHT IN REACH. AFTER I LET PT KNOW HE WOULD GET ANOTHER IV ANTIOBIOTIC THIS AFTERNOON HIS STATED "WELL YOU WON'T BE HERE BY THEN". ADVISED AND PT WE'LL WAIT AND SEE WHAT THE DOCTOR THINKS. PT NOT ARGUMENTATIVE.
--- NOTE | 2022-07-17 13:05 | NUR ---
DR BAER IN TO SEE PT. PT O2 SAT 91% ON 3l, DROPPED TO 87% WITH COUGHING AND MIELY TO 97% AFTERWARD WITHOUT FURTHER INTERVENTION. PT AGREEABLE TO PLAN TO STAY ONE MORE NIGHT PENDING PROGRESS. PLAN TO GET UP AND START GOING FOR WALKS WHICH PT IS EAGER TO DO.
--- NOTE | 2022-07-17 13:45 | NUR ---
PT UP FOR WALK 2 LAPS AROUND THE UNIT WITH FWW AND O2 AT 3LPM. O2 SAT 91% SITTING AT BEDSIDE, DROPPED TO 87% WITH EXERTION AFTER A HALF LAP, THEN RECOVERED IN UNDER 3 MINUTES WITH INCREASE TO 4LPM AND WAS ABLE TO MAINTAIN 94-96% ON 3LMP FOR THE REMAINDER OF THE WALK. NO SOB. PT RETURNED TO ARMCHAIR WITH CALL LIGHT IN REACH AND INSTRUCTIONS TO COLLECT SPUTUM SAMPLE.
--- NOTE | 2022-07-17 14:29 | EKG ---
[facility] [address] [facility] [place] [address] Signed Sinus rhythm with marked sinus arrhythmia Right bundle branch block Abnormal ECG When compared with ECG of 18-JUN-2022 11:00, premature atrial complexes are no longer present Confirmed by KANG BAER MD ([id number]) on 07/17/2022 2:28:56 PM Electronically Signed By: KANG BAER MD 07/17/22 1429 PATIENT NAME: TANGELA SAUCEDO Electrocardiogram DATE OF : 41 PHYSICIAN: KANG BAER MD REPORT #: [id number] REPORT IS CONFIDENTIAL AND NOT TO BE RELEASED WITHOUT AUTHORIZATION
--- NOTE | 2022-07-17 15:59 | NUR ---
PT SITTING UP AT SIDE OF BED EATING DINNER WITH O2 ON AT 3LPM, RESP EVEN AND UNLABORED, PT IN GOOD MOOD. CALL LIGHT IN REACH.
--- NOTE | 2022-07-17 19:10 | NUR ---
RECEIVED REPORT FROM DELLA ALLRED. PT IS RESTING IN BED ALERT AND ORIENTED TO ALL BUT TIME/DATE. CALL LIGHT WITHIN REACH, NO FURTHER NEEDS AT THIS TIME. BED ALARM SET.
--- NOTE | 2022-07-17 19:24 | NUR ---
ARTURO AND THE PATIENT WALKED 2 LAPS AROUND MED SURG. PATIENT WAS USING HIS WALKER. BEFORE PATIENT LAID DOWN PATIENT USED THE BATHROOM.
--- NOTE | 2022-07-17 20:30 | NUR ---
IN PT ROOM FOR PUBLIC SAFETY OFFICER, VS, I/O'S AND ASSESSMENT. PT IS LAYING IN BED ALERT AND ORIENTED TO ALL BUT DATE/TIME. PT REMAINS ON NC AT 2L WITH NO REPORTS OF SOB, CHEST PAIN, DIFFICULTY BREATHING THAT IS OUT OF ORDINARY FROM NORMAL. LUNG SOUNDS ARE DIMINISHED THROUGHOUT WITH WHEEZES HEARD PREDOM IN BILAT LFT LOBES AND RUL. O2 SATS ARE 93%. PT REPORTS NO NAUSEA, NUMBNESS/TINGLING, OR DIZZINESS. PULSES PRESENT THROUGHOUT, WEAK IN LEFT PEDAL. FEET COLD CHRONIC PER PT. SLIGHT BACK PAIN REPORTED BY PT, BUT CHRONIC AND DENIED NEED FOR PRN TYLENOL, ICE PACK, HEAT PACK. BED ALARM ON, CALL LIGHT WITHIN REACH, NO FURTHER NEEDS AT THIS TIME.
--- NOTE | 2022-07-18 00:42 | NUR ---
iv pump alarming, issue resolved. iv abx continues to infuse as directed, iv site wnl. bed alarm remains on and call light in reach.
--- NOTE | 2022-07-18 01:05 | NUR ---
BED ALARM GOING OFF, pt UP TO VOID AND BACK IN BED. pt DENIES NEEDS OR CONCERNS, CALL LIGHT IN REACH AND BED ALARM RESUMED.
--- NOTE | 2022-07-18 01:50 | NUR ---
0200 vss, sbp somewhat soft, will monitor. 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 iv site somewhat positional, new dressing in place. brisk blood return noted, iv fluids resumed per md orders. no additional needs, call light in reach. bed alarm on.
--- NOTE | 2022-07-18 06:25 | NUR ---
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 PT UP AT BEDSIDE TO USE BEDSIDE URINAL. NO ACUTE CHANGES FROM FIRST ASSESSMENT. PT REPORTS NO NAUSEA, PAIN, DIZZINESS, NUMBNESS/TINGLING. PULSES PRESENT THROUGHOUT, WEAK IN LEFT PEDAL. PT ON 2L NC W/O2 SATS AT 91%. CALL LIGHT WITHIN REACH, NO FURTHER NEEDS AT THIS TIME, BED ALARM ON. VSS.
--- NOTE | 2022-07-18 06:57 | NUR ---
UNEVENTFUL NIGHT FOR PT. LUNGS ARE DIMINISHED THROUGHOUT WITH WHEEZES PRESENT ON LEFT SIDE AND IN RUL. PT ON 2L NC W/O2 SATS MID 90'S. VSS. BED ALARM ON. OUTPUT SUFFICIENT. STANDBY ASSIST TO RESTROOM. PT REPORTED NO PAIN OR NAUSEA THROUGHOUT NIGHT TO REQUIRE PRN MEDS.
--- NOTE | 2022-07-18 07:10 | NUR ---
REPORT RECEIVED FROM CHALINO KNOWLES. PT RESTING ON RIGHT SIDE WITH EYES CLOSED. RESPIRATIONS EVEN AND UNLABORED. BED RAILS UP. CALL LIGHT WITHIN REACH. BED ALARM ON. PT ALLOWED TO REST.
--- NOTE | 2022-07-18 08:08 | NUR ---
MORNING ASSESSMENT AND MEDICATION DUE. PT RESTING ON BACK IN BED, WAKING UP NATURALLY. PT STATES "I GOT SOME GOOD SLEEP LAST NIGHT." PT DENIES PAIN AND NAUSEA. IV WNL, NO S/S OF PHLEBITIS NOTED. IV ABX INFUSING. PT ALERT AND ORIENTED TO ALL. PT REPORTS "A LITTLE" WEAKESS IN LOWER EXTREMITIES PT STATES "I DONT' FEEL WEAK I JUST FEEL A LITTLE BLAH." PT UP TO CHAIR WITH STAND BY ASSIST, MILDY UNSTEADY ON FEET, USING DOOR WAY TO STEADY HIMSELF. MINIMAL WHEEZES NOTED IN UPPER LOBES OF LUNGS. VERY HALLOW LUNG SOUNDS WITH INSIPRATION, MUCH MORE AUDIBLE AND CLEAR WITH EXPIRATION. OXGYEN SATURATION 90-93% ON 2L O2 BY NC. PT USING MILK JUG TO SPIT OUT WHITE SPUTUM PRN, SMALL AMOUNTS NOTED. BOWEL TONES ACTIVE. HEART TONES REGULAR AND 80-90'S. MEDICATIONS GIVEN. PT DENIES ADDITONAL REQUESTS OR COMPLAINTS. REMAINS UP TO CHAIR FOR BREAKFAST. CALL LIGHT WITHIN REACH.
--- NOTE | 2022-07-18 08:10 | NUR ---
patient in the chair waiting for breakfast. room cleaned up. call light within reach. no further needs at this time.
--- NOTE | 2022-07-18 08:37 | NUR ---
BREAKFAST DELIVERED TO PT. PT REMAINS UP TO CHAIR TO EAT. ICE WATER REFILLED. PT DENIES ADDITIONAL REQUESTS OR COMPLAINTS. CALL LIGHT WITHIN REACH.
--- NOTE | 2022-07-18 09:12 | NUR ---
PT UP IN ROOM, WANDERING. PT REPORTS HE NEEDS TO USE THE RESTROOM BUT DOSEN'T KNOW HOW TO MOVE THE IV PUMP. PT REMINDED TO CALL NURSING STAFF WHEN HE NEEDS TO GET. PT BECOMES ANGRY STATING "OK FINE! I JUST WANT OUT OF HERE." PT ASSISTED WITH IV POLE AND STAND BY ASSIST UP TO RESTROOM. PT DENIES SHORTNESS OF BREATH, REMAINS ON 2L O2 BY NC. PT HAS LARGE FORMED BOWEL MOVEMENT AND MISSED VOID. PT PERFORMS SELF ENOCH CARE. STAND BY ASSIST BACK TO CHAIR. PT UPDATED ON PLAN OF CARE AND EDUCATION DONE WITH PT REGARDING HOME OXYGEN USE. PT STATES "IT'S IMPOSSIBLE FOR ME TO USE THE OXGYEN ALL THE TIME." PT DESCRIBES HOW HE PLANS TO USE OXGYEN "ON AND OFF" AT HOME "WHEN I NEED IT." PT ASKS QUESTIONS ABOUT "HOW TO GET BETTER." EDUCATION DONE WITH PT REGARDING SMOKING CESATION. PT CONTINUES TO REFUSE RESOURCES STATING "i CAN'T STOP, IT WOULD BE LIKE LOSING MY BEST FRIEND." PT VERBALIZES UNDERSTANDING OF ALINA ALLRED STATES HIS QEUSTIONS HAVE BEEN ANSWERED. NO ADDITONAL NEEDS AT THIS TIME. CALL RACHEL HOWELL.
--- NOTE | 2022-07-18 10:15 | NUR ---
THIS RN TO ROOM TO CHECK ON PT. PT REMAINS UP TO CHAIR. PT REPORTS HE IS ANXIOUS TO VISIT WITH MD AND IS ANTICIPATING DISCHARGE. PT UPDATED ON PLAN OF CARE AND VERBALIZES UNDERSTANDING. PT DENIES PAIN AND NAUSEA. OXGYEN SATURATIONS REMAIN ABOVE 90% ON 1L O2 BY NC. PT DENIES ADDITIONAL REQUESTS OR COMPLAINTS. CALL LIGHT NGOC HOWELL.
--- NOTE | 2022-07-18 11:11 | NUR ---
THIS RN TO ROOM TO CHECK ON PT. IV ABX COMPLETE. IV FLUSHED AND SALINE LOCKED PER PROTOCOL, ALCOHOL CAP APPLIED. PT UP TO AMBUALTE IN MARQUEZ X3 LAPS WITH STAND BY ASSIST AND FWW. PT TALKS THROUGHOUT AMBULATION ABOUT HIS CHICKENS AND PEACOKCS AT HOME. PT DOES NOT NEED TO STOP TO REST OR CATCH HIS BREATH. OXYGEN SATURAION REMAINS ABOVE 89% THROUGH OUT AMBULATION. PT BACK TO ROOM. NO ADIDTIONAL REQUESTS OR COMPLAINTS. REMAINS UP TO CHAIR. CALL LIGHT WITHIN REACH.
--- NOTE | 2022-07-18 11:40 | NUR ---
THIS RN TO ROOM TO CHECK ON PT. PT VISITING WITH HIS YASEMIN. YASEMIN UPDATED ON PLAN OF CARE. YASEMIN VERBALIZES UNDERSTANDING AND STATES HER QUESTIONS HAVE BEEN ANSWERED. PT DENIES ADDITIONAL REQUESTS OR COMPLAINTS. CALL LIGHT WITHIN REACH.
[2022-07-18] MEDS ORDERED: PREDNISONE20 MG PO (11:56)
[2022-07-18] MEDS ORDERED: AMOX TR-K CLV1 EAC1 PO (11:57)
[2022-07-18] MEDS ORDERED: NICORETTE2 MG BUCCAL (11:58)
--- NOTE | 2022-07-18 13:00 | NUR ---
PT READY FOR DISCHAGE. PT DRESSES SELF WITH STAND BY ASSIST. VITAL SIGNS STABLE. PT REMAINS ON 1L O2 BY [place] WITH OXGYEN SATURATIONS 89-94%. PT DENIES SHORTNESS OF BREATH. PHARMACIST TO BEDSIDE TO REVIEW MEDICATIONS WITH PT AND PTS . PT AND ARE ABLE TO REPEAT BACK USE OF MEDICATIONS AND INSTRCUTIONS. DISCHARGE INSTRUCTIONS REVIEWED WITH PT. PT VERBALIES UNDERSTANDING AND STATES HIS QUESTIONS HAVE BEEN ANSWERED. IV DC'D BY [place], KYLER, CECIL AND AIRAM APPLIED. PT TRANSFERES SELF TO WHEELCHAIR AND IS WHEELED FROM MED/SURG WITH . NO ADDITIONAL REQUESTS OR CONCERNS.
== END 2022-07-18 13:15 | disposition home or self-care (01) | DRG 177 ==
LOC: ED 20:05 → MS 22:06
PROVIDERS: ADMIT Internal Medicine; ATTEND Internal Medicine
DX: J15.6 Pneumonia due to other Gram-negative bacteria (principal); J96.21 Acute and chronic respiratory failure with hypoxia; J44.0 Chronic obstructive pulmonary disease with (acute) lower respiratory infection; J44.1 Chronic obstructive pulmonary disease with (acute) exacerbation; I47.1 Supraventricular tachycardia; Z20.822 Contact with and (suspected) exposure to COVID-19; J18.1 Lobar pneumonia, unspecified organism; G89.4 Chronic pain syndrome; E78.5 Hyperlipidemia, unspecified; E05.90 Thyrotoxicosis, unspecified without thyrotoxic crisis or storm; M54.50 Low back pain, unspecified; F17.210 Nicotine dependence, cigarettes, uncomplicated; Z71.6 Tobacco abuse counseling; Z91.030 Bee allergy status; Z91.048 Other nonmedicinal substance allergy status; Z98.890 Other specified postprocedural states; Z79.899 Other long term (current) drug therapy
CPT/HCPCS: 36415; 36600; 71045; 71260; 80048; 80053; 81001; 82803; 83605; 83735; 83880; 84484; 85025; 85060; 85379; 87040; 87070; 87205; 87502; 93005; 93010; 94640; 94760; 94762; A9270; C9803; J0456; J0696; J1650; J2543; J2920; J2930; J7060; Q9967; U0003

== ENCOUNTER 2023-09-07 11:10 | Emergency (ER) | payer OTHER, MEDICARE ==
[~2023-09-07] VITALS: Ht 177.8 cm; Wt 64.0 kg
[~2023-09-07 11:10] MED LIST changes: +AMOX TR-K CLV1 EAC1 PO; +CYCLOBENZAPRINE10 MG PO; +LIDOCAINE5 GM TOP; +MULTI VITAMIN1 EACH PO; +NICORETTE2 MG BUCCAL; +REFRESH TEARS15 ML OU; +VOLTAREN ARTHRI20 GM TOP
--- OUTSIDE RECORDS SUMMARY | 2023-09-07 11:18 | XMS ---
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 [place] has no Care Guidelines for this patient. [place] VISIT COUNT (12 MO.) 2 [facility] TOTAL 2 NOTE: Visits indicate total known visits. ED/C VISIT TRACKING (12 MO.) 09/07/2023 11:11 [facility] [place] TYPE: Emergency COMPLAINT: - SPITTING UP BLOOD, FATIGUE, CONFUSION 04/07/2023 13:12 [facility] [place] TYPE: Emergency COMPLAINT: - NECK PAIN, DIZZY DIAGNOSES: - Bee allergy status - Cervicalgia - Chronic obstructive pulmonary disease, unspecified - Essential (primary) hypertension - Exposure to other specified factors, initial encounter - terminal supervisor (current) use of antithrombotics/antiplatelets - terminal supervisor (current) use of systemic steroids - Nicotine dependence, unspecified, uncomplicated - Other fdc (current) drug therapy - Other nonmedicinal substance allergy status - Strain of muscle, fascia and tendon at neck level, initial encounter INPATIENT VISIT TRACKING (12 MO.) No inpatient visits to display in this time frame [email or web address]
[2023-09-07] MEDS ORDERED: VENTOLIN HFA18 GM INH (12:09)
[2023-09-07] MEDS ORDERED: AMOX TR-K CLV1 EAC1 PO (12:09)
[2023-09-07] MEDS ORDERED: PREDNISONE20 MG PO (12:09)
[2023-09-07] MEDS ORDERED: DOXYCYCLINE HY100 MG PO (12:09)
[2023-09-07 12:52] VITALS: BP 147/85
== END 2023-09-07 12:55 | disposition home or self-care (01) ==
LOC: ED 11:10
DX: J20.9 Acute bronchitis, unspecified (principal); J44.0 Chronic obstructive pulmonary disease with (acute) lower respiratory infection; I10 Essential (primary) hypertension; F17.200 Nicotine dependence, unspecified, uncomplicated; Z91.030 Bee allergy status; Z91.048 Other nonmedicinal substance allergy status; Z79.899 Other long term (current) drug therapy
CPT/HCPCS: 71045; 94640; 99285-25; J7512

== ENCOUNTER 2023-09-23 11:56 | Emergency (ER) | payer OTHER, MEDICARE ==
[~2023-09-23] VITALS: Ht 177.8 cm; Wt 64.0 kg
[~2023-09-23 11:56] MED LIST changes: +DOXYCYCLINE HY100 MG PO
--- OUTSIDE RECORDS SUMMARY | 2023-09-23 12:04 | XMS ---
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 [place] has no Care Guidelines for this patient. [place] [facility] NOTE: Visits indicate total known visits. ED/C VISIT TRACKING (12 MO.) 09/23/2023 11:56 [facility] [place] TYPE: Emergency COMPLAINT: - POSS STROKE 09/07/2023 11:11 [facility] [place] TYPE: Emergency COMPLAINT: - SPITTING UP BLOOD, FATIGUE, CONFUSION DIAGNOSES: - Acute bronchitis, unspecified - Bee allergy status - Chronic obstructive pulmonary disease with (acute) lower respiratory infection - Cough, unspecified - Essential (primary) hypertension - Nicotine dependence, unspecified, uncomplicated - Other emt intermediate (current) drug therapy - Other nonmedicinal substance allergy status 04/07/2023 13:12 [facility] [place] TYPE: Emergency COMPLAINT: - NECK PAIN, DIZZY DIAGNOSES: - Bee allergy status - Cervicalgia - Chronic obstructive pulmonary disease, unspecified - Essential (primary) hypertension - Exposure to other specified factors, initial encounter - halfway (current) use of antithrombotics/antiplatelets - halfway (current) use of systemic steroids - Nicotine dependence, unspecified, uncomplicated - Other emt intermediate (current) drug therapy - Other nonmedicinal substance allergy status - Strain of muscle, fascia and tendon at neck level, initial encounter INPATIENT VISIT TRACKING (12 MO.) No inpatient visits to display in this time frame [email or web address]
[2023-09-23 12:53] LABS: BASOPHILS 1.2 % (0-2); EOSINOPHILS 2.1 % (0-6); HEMATOCRIT 47.7 % (35.0-50.0); HEMOGLOBIN 15.6 g/dL (12.0-18.0); LYMPHOCYTES 19.7 % (24-44); MCHC 32.7 g/dl (30-36); MCV 94.7 fl (81-99); MONOCYTES 5.2 % (0-12); NEUTROPHILS 71.8 % (39-80); PLATELET COUNT 169 K/uL (140-440); RBC 5.03 M/ul (4.3-5.7); RDW 15.3 (10.5-15.0)
[2023-09-23 13:05] LABS: ALBUMIN 3.4 g/dL (3.4-5.0); ALBUMIN/GLOBULIN RATIO 1.17 (1.1-2.4); ANION GAP 5.5 (7-21); BILIRUBIN, TOTAL 0.6 ng/dL (0.2-1.0); BUN/CREATININE RATIO 11.11 (6.0-28.6); CALCIUM 8.5 mg/dL (8.5-10.1); CREATININE, SERUM 0.9 mg/dL (0.70-1.30); POTASSIUM 4.5 mmol/L (3.5-5.1); PROTEIN, TOTAL 6.3 g/dL (6.4-8.2)
[2023-09-23 14:07] LABS: ERYTHROCYTE SEDIMENTATION RATE 3
[2023-09-23] MEDS ORDERED: LISINOPRIL10 MG PO (14:55)
[2023-09-23 15:13] VITALS: BP 195/89
== END 2023-09-23 15:15 | disposition home or self-care (01) ==
LOC: ED 11:56
PROVIDERS: Emergency Medicine
DX: R51.9 Headache, unspecified (principal); I10 Essential (primary) hypertension; E05.90 Thyrotoxicosis, unspecified without thyrotoxic crisis or storm; J44.9 Chronic obstructive pulmonary disease, unspecified; F17.200 Nicotine dependence, unspecified, uncomplicated; Z91.030 Bee allergy status; Z91.048 Other nonmedicinal substance allergy status; Z79.02 Long term (current) use of antithrombotics/antiplatelets; Z79.899 Other long term (current) drug therapy
CPT/HCPCS: 36415; 70450; 80053; 85025; 85651; 99284-25; A9270

== ENCOUNTER 2024-04-27 00:52 | Emergency (ER) | payer OTHER ==
[~2024-04-27] VITALS: Ht 177.8 cm; Wt 64.0 kg
[~2024-04-27 00:52] MED LIST changes: +ACETAMINOPHEN325 M1 PO; +BENADRYL ALLERG50 MG PO; +LISINOPRIL10 MG PO; +LISINOPRIL20 MG PO
--- OUTSIDE RECORDS SUMMARY | 2024-04-27 00:58 | XMS ---
PreManage Notification: TANGELA SAUCEDO Security Guardian Family Member Events No recent Security Events currently on file CRITERIA MET - Group Notification CARE PROVIDERS VESNA SOLA Internal [facility] Current PHONE: [phone] [place] has no Care Guidelines for this patient. EJanis VISIT COUNT (12 MO.) 4 RADHA Walsh TOTAL 4 NOTE: Visits indicate total known visits. ED/UCC VISIT TRACKING (12 MO.) 04/27/2024 00:52 [facility] [place] TYPE: Emergency COMPLAINT: - RASH 02/11/2024 12:20 [facility] [place] TYPE: Emergency COMPLAINT: - FEVER DIAGNOSES: - Acute upper respiratory infection, unspecified - Bee allergy status - Chronic obstructive pulmonary disease, unspecified - Encounter for screening for COVID-19 - Essential (primary) hypertension - Fever, unspecified - Nicotine dependence, unspecified, uncomplicated - Other allergy status, other than to drugs and biological substances - Other fatigue - Other retirement (current) drug therapy 09/23/2023 11:56 [facility] [place] TYPE: Emergency COMPLAINT: - POSS STROKE DIAGNOSES: - Bee allergy status - Chronic obstructive pulmonary disease, unspecified - Essential (primary) hypertension - Headache, unspecified - long-term (current) use of antithrombotics/antiplatelets - Nicotine dependence, unspecified, uncomplicated - Other terminal operator (current) drug therapy - Other nonmedicinal substance allergy status - Thyrotoxicosis, unspecified without thyrotoxic crisis or storm 09/07/2023 11:[address] [facility] [place] TYPE: Emergency COMPLAINT: - SPITTING UP BLOOD, FATIGUE, CONFUSION DIAGNOSES: - Acute bronchitis, unspecified - Bee allergy status - Chronic obstructive pulmonary disease with (acute) lower respiratory infection - Cough, unspecified - Essential (primary) hypertension - Nicotine dependence, unspecified, uncomplicated - Other retirement (current) drug therapy - Other nonmedicinal substance allergy status INPATIENT VISIT TRACKING (12 MO.) No inpatient visits to display in this time frame [email or web address]
[2024-04-27] MEDS ORDERED: methylPREDNISolone 4 MG HOME.PACK PO ONE (01:15)
[2024-04-27] MEDS ORDERED: diphenhydrAMINE HCL 50 MG CAP PO ONE (01:15)
[2024-04-27 01:19] VITALS: BP 179/89
== END 2024-04-27 01:20 | disposition home or self-care (01) ==
LOC: ED 00:52
DX: L50.9 Urticaria, unspecified (principal); I10 Essential (primary) hypertension; J44.9 Chronic obstructive pulmonary disease, unspecified; F17.200 Nicotine dependence, unspecified, uncomplicated; Z91.030 Bee allergy status; Z91.09 Other allergy status, other than to drugs and biological substances; Z79.899 Other long term (current) drug therapy
CPT/HCPCS: 99282; Q0163

== ENCOUNTER 2024-07-10 14:38 | Inpatient (IN) | payer OTHER ==
[~2024-07-10] VITALS: Ht 177.8 cm; Wt 64.0 kg
[2024-07-10] VITALS (7 sets, daily range): BP systolic 111–142; BP diastolic 65–96
[~2024-07-10 14:38] MED LIST changes: -MULTI VITAMIN1 EACH PO; +MULTIVITAMINS1 EAC6 PO
--- OUTSIDE RECORDS SUMMARY | 2024-07-10 14:45 | XMS ---
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 EJanis VISIT COUNT (12 MO.) 5 RADHA Walsh TOTAL 5 NOTE: Visits indicate total known visits. ED/UCC VISIT TRACKING (12 MO.) 07/10/2024 14:39 [facility] [place] TYPE: Emergency COMPLAINT: - COUGHING/RASH 04/27/2024 00:52 [facility] [place] TYPE: Emergency COMPLAINT: - RASH DIAGNOSES: - Bee allergy status - Chronic obstructive pulmonary disease, unspecified - Essential (primary) hypertension - Nicotine dependence, unspecified, uncomplicated - Other allergy status, other than to drugs and biological substances - Other head of housekeeping (current) drug therapy - Pruritus, unspecified - Urticaria, unspecified 02/11/2024 12:20 [facility] [place] TYPE: Emergency [...] Essential (primary) hypertension - Headache, unspecified - defective cigarette slitter (current) use of antithrombotics/antiplatelets - Nicotine dependence, unspecified, uncomplicated - Other retirement (current) drug therapy - Other nonmedicinal substance allergy status - Thyrotoxicosis, unspecified without thyrotoxic crisis or storm 09/07/2023 11:11 [facility] [place] TYPE: Emergency COMPLAINT: - SPITTING UP BLOOD, FATIGUE, CONFUSION DIAGNOSES: - Acute bronchitis, unspecified - Bee allergy status - Chronic obstructive pulmonary disease with (acute) lower respiratory infection - Cough, unspecified - Essential (primary) hypertension - Nicotine dependence, unspecified, uncomplicated - Other head of housekeeping (current) drug therapy - Other nonmedicinal substance allergy status INPATIENT VISIT TRACKING (12 MO.) No inpatient visits to display in this time frame [email or web address]
[2024-07-10] MEDS ORDERED: CEFTRIAXONE/SODIUM CHLORIDE 2 GM/100 ML PIGGYBACK IV ONE ×2 (15:00→15:15)
[2024-07-10] MEDS ORDERED: methylPREDNISolone SOD SUCC 125 MG/2 ML VIAL IV ONE (15:00)
[2024-07-10] MEDS ORDERED: ALBUTEROL/IPRATROPIUM 3 ML NEB INH ONE (15:00)
[2024-07-10] MEDS ORDERED: SODIUM CHLORIDE 0.9% 1,000 ML IV ONE (15:00)
[2024-07-10 15:05] LABS: BASOPHILS 0.1 % (0-2); EOSINOPHILS 0.1 % (0-6); HEMOGLOBIN 16.6 g/dL (12.0-18.0); LYMPHOCYTES 7.5 % (24-44); MCH 31.5 (27-36); MCHC 33.2 g/dl (30-36); MCV 95.1 fl (81-99); MONOCYTES 6.6 % (0-12); NEUTROPHILS 85.7 % (39-80); PLATELET COUNT 92 K/uL (140-440); RBC 5.26 M/ul (4.3-5.7); RDW 13.8 (10.5-15.0)
[2024-07-10 15:19] LABS: SMEAR REVIEW BLOOD SEE COMMENTS
[2024-07-10 15:20] LABS: ALBUMIN 3.2 g/dL (3.4-5.0); ALBUMIN/GLOBULIN RATIO 0.89 (1.1-2.4); ANION GAP 8.5 (7-21); BILIRUBIN, TOTAL 1.2 ng/dL (0.2-1.0); BUN/CREATININE RATIO 22.68 (6.0-28.6); CREATININE, SERUM 1.19 mg/dL (0.70-1.30); POTASSIUM 4.5 mmol/L (3.5-5.1); PROTEIN, TOTAL 6.8 g/dL (6.4-8.2)
[2024-07-10 15:22] LABS: LACTIC ACID, BLOOD 1.6 mmol/L (0.4-2.0)
[2024-07-10 15:41] LABS: BILIRUBIN, URINE NEGATIVE (negative); BLOOD/HGB, URINE MODERATE (Negative); KETONE, URINE NEGATIVE (Negative); LEUK ESTERASE, URINE NEGATIVE (negative); NITRITE, URINE NEGATIVE (negative); PH, URINE 5.5 (5-7)
[2024-07-10 15:47] LABS: BACTERIA, URINE 1+ /hpf (negative); CASTS, URINE NONE SEEN \\lpf; COLLECTION TYPE, URINE CLEAN CATCH; CRYSTALS, URINE NONE SEEN (0-1+); EPITHELIAL CELLS, URINE SQUAMOUS 1+ /lpf (0-1+); RED BLOOD CELLS, URINE 0-1 /hpf (0-5); REFLEX CULTURE, URINE Yes (No)
[2024-07-10 15:52] LABS: INFLUENZA B NAA NEGATIVE (NEGATIVE); RESPIRATORY SYNCYTIAL VIR NAA NEGATIVE (NEGATIVE)
[2024-07-10] MEDS ORDERED: AZITHROMYCIN/DEXTROSE 500 MG/250 ML BAG IV ONE (16:15)
[2024-07-10] MEDS ORDERED: NICOTINE 21 MG/24 HR 1 EA TDSY TD SCH (17:18)
[2024-07-10] MEDS ORDERED: TRAMADOL HCL50 MG PO (17:29)
[2024-07-10] MEDS ORDERED: METOPROLOL TARTRATE 25 MG TAB PO STA (17:43)
[2024-07-10 17:48] LABS: PARTIAL THROMBOPLASTIN TIME 29.9 Sec (22.9-41.3)
--- NOTE | 2024-07-10 17:48 | NUR ---
PATIENT ADMITTED TO CCU ROOM 129 FOR COPD/PNEUMONIA. PT ARRIVES ON 15 L OXYMASK AND IS SWITCHED BACK TO VAPOTHERM 30L AND 60% ONCE IN CCU BED. PT ABLE TO STAND AND MOVE SELF INTO CCU BED. PT HAS PETECHIAL LIKE RASH COVERING ENTIRE LOWER LEGS. PT STATES THIS HAS BEEN THIS WAY FOR A WEEK OR SO, AND HE HAS HAD THIS RASH BEFORE, HAS SEEN A DOCTOR FOR IT AND HAS TAKEN A MEDICATION TO HELP GET RID OF IT. ADMIT ASSESSMENT INTAKE COMPLETED. PT REPORTS HIS HELPS HIM WITH ALL OF HIS MEDICATIONS AT HOME. PT STILL EVERYDAY SMOKER, BUT IN THE LAST SEVERAL DAYS HAS ONLY SMOKE 3-4 CIGARETTES/DAY DUE TO NOT FEELING WELL. NO EDEMA PRESENT. DINNER ORDERED AND GIVEN TO PATIENT. PLAN OF CARE DISCUSSED. CALL LIGHT IN REACH. PT ORIENTED TO ROOM.
[2024-07-10 17:52] LABS: INR 1.29 (0.80-1.30); PROTIME 15.3 Sec (11.2-14.2)
[2024-07-10 17:53] LABS: TSH, 3RD GENERATION 2.182 uIU/mL (0.358-3.740)
--- NOTE | 2024-07-10 18:03 | EKG ---
[facility] [address] [facility] [place] [address] Signed Sinus rhythm with premature atrial complexes Possible Left atrial enlargement Right bundle branch block Abnormal ECG When compared with ECG of 11-FEB-2024 14:18, premature atrial complexes are now present Confirmed by Mahnaz Johnson MD ([id number]) on 07/10/2024 6:03:34 PM Electronically Signed By: MAHNAZ JOHNSON MD 07/10/241802 PATIENT NAME: TANGELA SAUCEDO Electrocardiogram DATE OF : 41 PHYSICIAN: MAHNAZ JOHNSON MD REPORT #: [id number] REPORT IS CONFIDENTIAL AND NOT TO BE RELEASED WITHOUT AUTHORIZATION
[2024-07-10] MEDS ORDERED: ALBUTEROL SULFATE 0.083% 3 ML VIAL INH PRN (18:45)
--- NOTE | 2024-07-10 18:47 | NUR ---
PATIENT TAKEN DOWN TO CT SCAN FOR PE STUDY. PT TRANSPORTED ON 15 L OXYMASK. PT TOLERATED WELL. RESULTS PENDING.
--- NOTE | 2024-07-10 19:07 | NUR ---
PATIENT DOING WELL ON VAPOTHERM. SETTINGS TITRATED DOWN TO 50% DUE TO SP02 99%. PT RESTING IN BED, STILL TACHYPENIC AT 28 BUT DOES NOT LOOK TO BE IN ANY DISTRESS. PT ASKING ABOUT HIS NORMAL NIGHT TIME MEDICATIONS. DISCUSSED THIS WITH HIM. WILL CONTINUE TO MONITOR. REPORT TO MILLER HEAD ASSISTANT WET PROCESS RNs.
--- NOTE | 2024-07-10 19:30 | NUR ---
REPORT RECEIVED FROM BRIGIDA ALLRED. PT IS AWAKE IN BED, WEARING VAPOTHERM 30/50.
--- NOTE | 2024-07-10 19:45 | NUR ---
PT UP TO BSC TO VOID 100 ML URINE, BACK TO BED. SLIGHT INCREASE IN WORK OF BREATHING WITH ACTIVITY. ASSESSMENT DONE. LUNGS ARE DIM WITH EXP WHEEZE THROUGHOUT, SOMEWHAT TIGHT SOUNDING. PT IS ON VAPOTHERM AT 30L/50%. NO REQUESTS AT THIS TIME.
[2024-07-10] MEDS ORDERED: ALBUTEROL/IPRATROPIUM 3 ML NEB INH SCH (20:00)
--- NOTE | 2024-07-10 20:17 | NUR ---
PT UP TO BSC TO VOID 100ML DARK URINE, BACK TO BED. NEB TX STARTED.
[2024-07-10] MEDS ORDERED: GABAPENTIN 400 MG CAP PO SCH (21:00)
[2024-07-10] MEDS ORDERED: MELATONIN 3 MG TAB PO PRN (21:00)
[2024-07-10] MEDS ORDERED: METOPROLOL TARTRATE 5 MG/5 ML VIAL IV PRN (21:45)
[2024-07-10] MEDS ORDERED: methylPREDNISolone SOD SUCC 40 MG/ML VIAL IV SCH (22:00)
--- NOTE | 2024-07-10 22:15 | NUR ---
PT HR CONT TO HAVE BURSTS OF TACHYCARDIA, BECOMING MORE AND MORE FREQUENT. DR WYMAN UPDATED, ORDERS GIVEN FOR PRN LOPRESSOR. LOPRESSOR 5MG IV GIVEN.
[2024-07-11] VITALS (12 sets, daily range): BP systolic 104–129; BP diastolic 56–90
--- NOTE | 2024-07-11 00:30 | NUR ---
PTS HR BECAME MORE REGULAR AFTER PRN LOPRESSOR WAS GIVEN BUT HAS BEGUN TO BEOME MORE IRREGULAR WITH THE FREQUENT TACHYCARDIA. IN TO DO ASSESSMENT, PT HAS NO REQUESTS AT THIS TIME.
--- NOTE | 2024-07-11 02:30 | NUR ---
PT RESTING IN BED WEARING VAPOTHERM, SPO2 97% RR 20.
--- NOTE | 2024-07-11 03:41 | NUR ---
PT AWAKE WITH A COUGHING SPELL, ASSESSMENT DONE, PT FEELING SOME SHORTNESS OF BREATH WITH COUGHING. RT COMING TO DO A NEB TX.
--- NOTE | 2024-07-11 05:00 | NUR ---
PTS HEARTRATE HAS BEEN MORE FREQUENTLY HAVING BURSTS OF TACHYCARDIA WITH HR JUMPING UP TO 120'S AND 140'S. PRN LOPRESSOR 5MG IV GIVEN. PT IS JUST SITTING IN BED, APPEARS TO BE RESIING, AROUSES WITH MEDICATION ADMINISTRATION, DENIES NEEDS AND GOES BACK TO SLEEP.
[2024-07-11 05:36] LABS: HEMATOCRIT 44.5 % (35.0-50.0); HEMOGLOBIN 14.7 g/dL (12.0-18.0); MCH 31.3 (27-36); MCV 94.8 fl (81-99); PLATELET COUNT 83 K/uL (140-440); RBC 4.69 M/ul (4.3-5.7); RDW 13.8 (10.5-15.0)
[2024-07-11 05:44] LABS: ANION GAP 9.7 (7-21); BUN/CREATININE RATIO 25.49 (6.0-28.6); CALCIUM 8.8 mg/dL (8.5-10.1); CREATININE, SERUM 1.02 mg/dL (0.70-1.30); POTASSIUM 3.7 mmol/L (3.5-5.1)
[2024-07-11 06:02] LABS: BANDS, MANUAL DIFF 25; LYMPHOCYTES, MANUAL DIFF 4; MONOCYTES, MANUAL DIFF 5; NEUTROPHILS, MANUAL DIFF 66
--- NOTE | 2024-07-11 07:15 | NUR ---
Report received from shift production associate RN, patient resting on L side, RR even and unlabored, no needs identified at this time, will continue plan of care
[2024-07-11] MEDS ORDERED: CEFTRIAXONE/SODIUM CHLORIDE 2 GM/100 ML PIGGYBACK IV SCH (09:00)
[2024-07-11] MEDS ORDERED: AZITHROMYCIN 500 MG in DEXTROSE 5% 250 ML IV SCH (09:00)
[2024-07-11] MEDS ORDERED: METOPROLOL SUCCINATE 25 MG TABCR PO SCH ×2 (09:00→21:00)
--- NOTE | 2024-07-11 09:25 | NUR ---
Physical therapy in room to work with patient. HR in 110's, PO metoprolol administered along with scheduled medications. Patient KASAAN, denies needs at this time. Remains on 4L NC O2, spo2 93%, desat to 88% with exertion. Breakfast tray delivered, patient sitting up to chair, chair alarm in place. Ice water provided, no further needs at this time.
--- NOTE | 2024-07-11 09:37 | NUR ---
PATIENT ALERT IN RECLINER. STATES HE LIVES IN RV WITH SPOUSE AND SON. 2 STEPS BUT HAS RAMP TO GET INSIDE. DENIES DME USE AT HOME. [facility] WHO [facility], STATES "IT CHANGES" BASED ON PROBLEMS. STATES HE DRIVES, FAMILY CAN ASSIST WITH TRANSPORT. ALSO STATES HE HAS NO FINANCIAL HARDSHIP, NO NEEDS AT HOME. DENIES OTHER NEEDS AT HOME. PT STATE HE COULD POTENTIALLY NEED A WALKER, WILL NOTIFY CASE MANAGEMENT IF THEY RECOMMEND ONE AFTER MORE TIME IN PT.
--- NOTE | 2024-07-11 10:02 | NUR ---
UR CLINICAL REVIEE: [facility] @ 1706 ORDER MATCHES REG NO AUTH RQUIRED PER [facility] GUID[facility]. CHART FAXED TO [facility]. DISCHARGE TO HOME WHEN STABLE 07/13/24
--- NOTE | 2024-07-11 10:59 | NUR ---
Rounded with Dr Grimes, patient endorses rash to be "worse than usual, happens every year, uses a salve for it at home". Patient remains in Afib with HR in 90-100s. On 4L NC with spo2 98% at this time, resting in bed. IV ABX complete, saline locked. New medication orders discussed.
--- NOTE | 2024-07-11 11:29 | EKG ---
[facility] [address] [facility] [place] [address] Signed Atrial fibrillation with rapid ventricular response with premature ventricular or aberrantly conducted complexes Right bundle branch block Inferior infarct , age undetermined Abnormal ECG When compared with ECG of 10-JUL-2024 14:48, Atrial fibrillation has replaced Sinus rhythm QT has lengthened Confirmed by Zehra Wyman MD () on 07/11/2024 11:28:56 AM Electronically Signed By: ZEHRA WYMAN MD 07/11/24 1129 PATIENT NAME: LEWISTANGELA JOHN Electrocardiogram DATE OF : 41 PHYSICIAN: ZEHRA WYMAN MD REPORT #: [id number] REPORT IS CONFIDENTIAL AND NOT TO BE RELEASED WITHOUT AUTHORIZATION
[2024-07-11] MEDS ORDERED: diphenhydrAMINE 2% CREAM TUBE TOP PRN (11:30)
[2024-07-11] MEDS ORDERED: HYDROCORTISONE 2.5% 30 GM TUBE TOP PRN (11:30)
--- NOTE | 2024-07-11 11:36 | NUR ---
RA TRIAL 85% REPLACED O2 AT 4 LPM.
[2024-07-11] MEDS ORDERED: PHARMACY RENAL DOSE ADJUSTMENT 1 DOSE MISC PO SCH (12:00)
--- NOTE | 2024-07-11 12:15 | NUR ---
PATIENT UP TO BSC [id number] FOR SAFETY. SMALL BP CHARTED. IMAGING AT BEDSIDE NOW FOR ECHO. CALL LIGHT IN EASY REACH
--- NOTE | 2024-07-11 12:36 | NUR ---
PATIENT SITTING AT SIDE OF BED FOR LUNCH. FRESH ICE WATER PROVIDED. CALL LIGHT IN CLOSE REACH FOR SAFETY
--- NOTE | 2024-07-11 13:20 | NUR ---
Patient restless at times, setting of chair/bed alarms, requiring frequent redirection. RT titrating O2 per patient needs.
--- NOTE | 2024-07-11 14:06 | NUR ---
VISITED DURING SPIRITUAL CARE ROUNDS. PT IN OVERALL GOOD SPIRITS, NO IMMEDIATE NEEDS. INSURANCE ACTUARY PROVIDED SUPPORTIVE PRESENCE, HOSPITALITY, PRAYER. PT EXPRESSED GRATITUDE.
--- NOTE | 2024-07-11 15:40 | NUR ---
PATIENT AMBULATED MARQUEZ WITH THIS CANCER REGISTRAR. 4-5L NC NEEDED WITH THIS ACTIVITY. BCAK TO ROOM, RT IN FOR NEB TREATMENT. PATIENT SITTING AT SIDE OF BED. CALL LIGHT IN EASY REACH
--- NOTE | 2024-07-11 17:15 | NUR ---
Patient becoming increasingly restless and requests to walk in hallway. This RN accompanies patient for walk. Maintains o2 with 4L NC O2, although poor pleth d/t circulation, A fib rhythm. Occasional cough noted. Pt appears confused to direction; [facility]. Patient back to room and encouraged to accept application of diphenhydramine/hydrocortisone creams, pt accepts but would like to do this independently. States "I thought I would make the decision to leave tomorrow, but now I think I might just stay through the weekend." Chair/bed alarms on this shift as patient impulsive.
--- NOTE | 2024-07-11 17:58 | NUR ---
Patient sets off chair alarm, this RN in room to assist patient back to bed, on 3L NC at 94%, BP stable at this time. Dinner tray removed. Pt states no needs at this time.
--- NOTE | 2024-07-11 19:30 | NUR ---
SHIFT REPORT RECEIVED. PATIENT RESTING IN BED. TOLERATING 4L NC. RT IN FOR TREATMENT. BED ALARM ON. CALL LIGHT IN REACH.
--- NOTE | 2024-07-11 20:30 | NUR ---
DISCUSSED PATIENT'S ELEVATED HR WITH . PRN LOPRESSOR NOT YET AVAILABLE. HR 125-135 AT REST; AFIB. PLAN TO INCREASED PO DOSE TONIGHT. VERIFIED VIA REPEAT BACK.
--- NOTE | 2024-07-11 21:13 | NUR ---
PATIENT PROVIDED SCHEDULED MEDS. PATIENT RESTING IN BED. SLIGHTLY RESTLESS, PICKING AT CORDS AND ITEMS ON HIS BEDSIDE TABLE. TOLERATING 4L NC, FREQUENTLY REMOVES HIS PULSE OX. PATIENT IS FORGETFUL AND HARD OF HEARING. LUNG SOUNDS ARE COARSE IN ALETA UPPER LOBES, DIM IN THE BASES. PATIENT HAS LOOSE COUGH. DENIED GI UPSET OR PAIN. SKIN RASH NOTED, PATIENT REPORTS THE TOPICAL OINTMENT IS HELPING. PATIENT DENIED OTHER NEEDS AT THIS TIME. CALL LIGHT IN REACH. AND BED ALARM ACTIVE.
--- NOTE | 2024-07-11 22:30 | NUR ---
PATIENT APPEARS RESTFUL IN BED. EYES CLOSED. HR IMPROVED TO 105-115 AT REST; AFIB. TOLERATING 3L NC. CALL LIGHT IN REACH. BED ALARM ACTIVE.
[2024-07-12] VITALS (12 sets, daily range): BP systolic 102–143; BP diastolic 69–92
--- NOTE | 2024-07-12 00:26 | NUR ---
BED ALARM NOTIFIED STAFF THAT PATIENT WAS SITTING UP IN BED. PATIENT HAD BEEN SWEATING AND WANTED HIS GOWN OFF. THIS RN ASSISTED HIM TO REMOVE HIS GOWN. PATIENT IS NEZ PERCE BUT FOLLOWS MOST DIRECTIONS. IS SLIGHTLY IMPULSIVE. PATIENT UP TO [facility] TO VOID. RETURNED TO BED. NEW GOWN PROVIDED. PATIENT REMAINS ON 3L NC. TOLERATING WELL. DENIES FEELING SOB. HR 100-110 AT REST; AFIB. PATIENT DENIED OTHER NEEDS. BED ALARM ACTIVE. REMINDED TO USE CALL LIGHT.
--- NOTE | 2024-07-12 01:15 | NUR ---
PATIENT APPEARS RESTFUL IN BED. EYES CLOSED. VS STABLE. HR 90-100; AFIB. TOLERATING 3L NC.
--- NOTE | 2024-07-12 03:30 | NUR ---
PATIENT TITRATED TO 2L NC. CONTINUES TO REST WITH EYES CLOSED. CALL LIGHT IN REACH. BED ALARM ACTIVE.
--- NOTE | 2024-07-12 05:06 | NUR ---
PATIENT RESTING WITH EYES CLOSED. DOES NOT WAKE WITH RN IN ROOM. VS STABLE. CALL LIGHT IN REACH. BED ALARM ACTIVE.
--- NOTE | 2024-07-12 05:25 | NUR ---
BED ALARM WENT OFF, UPON ENTERING PT WAS AT EDGE OF BED STATING HE NEEDED TO USE THE BATHROOM. PT UP TO BSC TO VOID AND BACK TO BED. PT REMINDED TO USE CALL LIGHT. NO FURTHER NEEDS AT THIS TIME. CALL LIGHT IN REACH. BED ALARM ON.
[2024-07-12 05:26] LABS: HEMATOCRIT 44.8 % (35.0-50.0); HEMOGLOBIN 14.9 g/dL (12.0-18.0); MCH 31.4 (27-36); MCHC 33.3 g/dl (30-36); MCV 94.4 fl (81-99); PLATELET COUNT 104 K/uL (140-440); RBC 4.75 M/ul (4.3-5.7); RDW 14.1 (10.5-15.0)
[2024-07-12 05:39] LABS: ANION GAP 9.9 (7-21); CALCIUM 8.9 mg/dL (8.5-10.1); MAGNESIUM 2.2 mg/dL (1.8-2.4); POTASSIUM 4.9 mmol/L (3.5-5.1)
[2024-07-12 06:00] LABS: BANDS, MANUAL DIFF 18; LYMPHOCYTES, MANUAL DIFF 9; MONOCYTES, MANUAL DIFF 10; NEUTROPHILS, MANUAL DIFF 63
--- NOTE | 2024-07-12 06:27 | NUR ---
PATIENT PROVIDED SCHEDULED MEDS AND FRESH ICE WATER. PATIENT REPORTS BEING TIRED THIS MORNING BUT DENIED FEELING SOB. CONTINUES TO TOLERATE 2L NC. VS STABLE. HR 80-90'S; AFIB. BED ALARM ON. CALL LIGHT IN REACH.
--- NOTE | 2024-07-12 07:50 | NUR ---
PATIENT UP TO BSC WITH SBC FOR VOID. MORNING SNACK PROVIDED. BACK TO BED, CALL LIGHT IN EASY REACH, BED ALARM ON FOR SAFETY
--- NOTE | 2024-07-12 07:57 | NUR ---
RA TRIAL 88%, REPLACED O2 TO 2 LPM.
--- NOTE | 2024-07-12 08:00 | NUR ---
PATIENT SITTING UP IN BED WATCHING TV. PATIENT ALERT & ORIENTED TO PERSON, PLACE, TIME & SITUATION. PATIENT DENIES ANY PAIN OR DISCOMFORT AT THIS TIME. ASSESSMENT COMPLETED. PATIENT AFEBRILE. PATIENTS HEART RHYTHM AFIB AT RATE 110-130. PATIENT'S CALL LIGHT AND BELONGINGS WITHIN REACH.
--- NOTE | 2024-07-12 08:20 | NUR ---
BSC WITH SBA. BREAKFAST AT BEDSIDE TABLE, PATIENT NOT YET HUNGRY. PATIENT SITTING UP IN BED AT THIS TIME, WASHCLOTH PROVIDED FOR FACE AND HANDS. BED ALARM ON FOR SAFETY. CALL LIGHT IN REACH
--- NOTE | 2024-07-12 09:50 | NUR ---
In and spoke with Levon. He is very YOMBA SHOSHONE. Took Pocket Talker to room with head phones and pt was able to use very well. Discussed with pt concern by Rn and RT he is getting evicted. He denies this and states this is how he ended up in [place]. He lives in large RV at his sons. He his plugged in to water and electricity. His son is in [place] today and will be home tonight. His does not drive a stick so is not able to visit today. Dr. Pritchard was in the room discussing he plans on pt staying as his heart rate is elevated. Pt states understanding.
--- NOTE | 2024-07-12 09:52 | NUR ---
PT NOT AVAILABLE FOR VISIT. PROVIDED PRAYER.
[2024-07-12] MEDS ORDERED: METOPROLOL TARTRATE 50 MG TAB PO ONE ×2 (10:00→21:30)
--- NOTE | 2024-07-12 10:30 | NUR ---
PATIENT AMBULATED MARQUEZ WITH THIS AD TAKER AND RT SERENITY. TOLERATED ACTIVITY WELL. BACK TO ROOM, SITTING UP IN RECLINER. CALL LIGHT IN EASY REACH
--- NOTE | 2024-07-12 12:30 | NUR ---
PATIENT SITTING UP IN BED EATING LUNCH. PATIENT DENIES HAVING ANY PAIN OR DISCOMFORT. VSS. AFEBRILE. A&OX4. CALL LIGHT AND BELONGINGS WITHIN REACH. HEART RATE & RHYTHM 120's AFIB.
[2024-07-12] MEDS ORDERED: PROAIR DIGIHAL90 MCG INH (12:44)
[2024-07-12] MEDS ORDERED: ALBUTEROL2.5 MG/3 M INH (12:45)
[2024-07-12] MEDS ORDERED: VITAMIN D350 MC3 PO (12:45)
[2024-07-12] MEDS ORDERED: TOPROL XL25 MG PO (12:49)
[2024-07-12] MEDS ORDERED: FLOMAX0.4 MG PO (12:52)
[2024-07-12] MEDS ORDERED: STIOLTO RESPIMAT4 G1 INH (12:53)
[2024-07-12 14:30] LABS: HAPTOGLOBIN 312 mg/dL (30-200)
[2024-07-12] MEDS ORDERED: ACULAR5 ML OS (14:47)
[2024-07-12] MEDS ORDERED: PRED FORTE5 ML OS (14:47)
--- NOTE | 2024-07-12 14:48 | NUR ---
MED REC COMPLETE
[2024-07-12] MEDS ORDERED: ALBUTEROL/IPRATROPIUM 3 ML NEB INH SCH (16:00)
--- NOTE | 2024-07-12 17:00 | NUR ---
PATIENT SITTING UP IN BED EATING DINNER AND WATCHING TV. PATIENT DENIED HAVING ANY PAIN OR DISCOMFORT. VSS. AFEBRILE. PATIENT'S HEART RHYTHM AND RATE - NST-ST 90-110. PATIENT A&OX4. CALL LIGHT WITHIN REACH.
--- NOTE | 2024-07-12 18:42 | NUR ---
PATIENT UP TO BSC FOR VOID. STEADY ON HIS FEET. SITTING UP IN BED AT THIS TIME, SPRITE PROVIDED. CALL LIGHT IN EASY REACH. ALARM ON FOR SAFETY
--- NOTE | 2024-07-12 19:30 | NUR ---
SHIFT REPORT RECEIVED. PATIENT RESTING IN BED TALKING ON THE PHONE. CALL LIGHT IN REACH. BED ALARM ACTIVE.
[2024-07-12] MEDS ORDERED: methylPREDNISolone SOD SUCC 40 MG/ML VIAL IV SCH (21:00)
[2024-07-12] MEDS ORDERED: METOPROLOL TARTRATE 25 MG TAB PO SCH (21:00)
--- NOTE | 2024-07-12 21:36 | NUR ---
2100 SCHEDULED MEDS PROVIDED PER ORDER. PATIENT RESTING IN BED. TOLERATING 2L NC. AAOX4. HR 80'S; SINUS RHYTHM. PATIENT PROVIDED FRESH ICE WATER AND TOOK PO MEDS WITHOUT ANY ISSUE. WHILE RN IN ROOM PATIENT'S HR SUDDENLY INCREASED TO THE 160'S, APPEARS TO BE SINUS TACH. PATIENT BP WNL. DENIED SOB. RADIAL PULSE PALPATED AND MATCHED RAILROAD WORKER. ATTEMPTED TO HAVE PATIENT PERFORM VALSALVA MANEUVERS; WHICH WERE MILDLY SUCESSFUL. PATIENT HR 120-130'S, ST. 2115 PATIENT HR INCREASED AGAIN TO THE 160'S AND SUSTAINED. CALL PLACED TO . IV LOPRESSOR ADMINISTERED. PATIENT CONTINUED TO DENY SOB AND DID NOT APPEAR UNCOMFORTABLE. BP STABLE. MD IN TO SEE PATIENT. PLAN TO INCREASE PO LOPRESSOR DOSE.
--- NOTE | 2024-07-12 21:54 | EKG ---
[facility] [address] [place] [address] Signed Sinus rhythm with premature atrial complexes Possible Left atrial enlargement Left axis deviation Right bundle branch block Abnormal ECG When compared with ECG of 11-JUL-2024 06:22, Sinus rhythm has replaced Atrial fibrillation Confirmed by Zehra Wyman MD () on 07/12/2024 9:54:03 PM Electronically Signed By: ZEHRA WYMAN MD 07/12/24 2154 PATIENT NAME: TANGELA SAUCEDO JOHN Electrocardiogram DATE OF : 41 PHYSICIAN: ZEHRA WYMAN MD REPORT #: [id number] REPORT IS CONFIDENTIAL AND NOT TO BE RELEASED WITHOUT AUTHORIZATION
--- NOTE | 2024-07-12 22:42 | NUR ---
BED ALARM ALERTED NURSING STAFF. UPON ENTERING THE ROOM, PT STATES HE NEEDS TO USE THE BATHROOM. PT UP TO COMMODE AND BACK TO BED. PT REMINDED TO USE CALL LIGHT. NO FURTHER NEEDS AT THIS TIME. BED IN LOW AND LOCKED POSTION WITH BED ALARM ON.
--- NOTE | 2024-07-12 23:32 | NUR ---
patient up to the bsc. patient did not call for assist, bed alarm notified staff. patient voided and returned to bed. hr sr 80-90's. after returning to bed patient began to have more ectopy and then converted back into afib. rate controlled at 100-110. patient denied any concerns, including sob or palpitations. bed alarm active. call light in reach.
[2024-07-13] VITALS: BP 127/79
--- NOTE | 2024-07-13 00:32 | NUR ---
PATIENT AGAIN UP WITHOUT CALLING FOR ASSIST. PATIENT TO THE BSC TO VOID. PATIENT REPORTS BEING TIRED AND IS SLIGHTLY UNSTEADY ON HIS FEET. ASSISTED BACK TO BED. VS STABLE. TOLERATING 2L NC. BED ALARM ACTIVE. CALL LIGHT IN REACH. REEDUCATED ON CALLING FOR ASSIST.
[2024-07-13 02:00] VITALS: BP 102/64
--- NOTE | 2024-07-13 02:30 | NUR ---
PATIENT UP TO BSC TO VOID. PATIENT AGAIN ATTEMPTED TO EXIT BED WITHOUT CALLING. BED ALARM ALERTED STAFF. PATIENT VOIDED AND RETURNED TO BED. TOLERATED 2L NC. VS STABLE. HR RATE CONTROLLED 80-90'S; AFIB. BED ALARM ACTIVE. CALL LIGHT IN REACH. REMINDED PATIENT TO USE CALL LIGHT.
--- NOTE | 2024-07-13 03:45 | NUR ---
PATIENT PULLED ALL CARDIAC LEADS, BP CUFF, Sp02 PROBE, AND NASAL CANNULA. WHEN RN ENTERED ROOM PATIENT LAYING IN BED AND STATED "I'M READY FOR MY COFFEE". PATIENT REORIENTED AND REPORTS BEING UNAWARE HE WAS IN THE HOSPITAL OR THAT HE NEEDED OXYGEN OR THE MONITOR. PATIENT REORIENTED. MORE CONFUSED THAN PREVIOSULY NOTED. PATIENT ALLOWS MONITOR LEADS TO BE REPLACED AND PUT NC BACK IN PLACE. PATIENT DENIED ANY NEEDS AND APPOLOGIZED FOR REMOVING MONITOR. ENCOURAGED PATIENT TO REST. CALL LIGHT IN REACH. BED ALARM ACTIVE.
[2024-07-13 04:00] VITALS: BP 135/83
--- NOTE | 2024-07-13 04:15 | NUR ---
PATIENT UP OUT OF BED WITHOUT CALLING. BED ALARM ALERTED STAFF. ASSISTED PATIENT TO THE BSC. PATIENT APPEARS ORIENTED TO SURROUNDINGS BUT IS FLUSHED AND SLIGHTLY SOB. TOLERATING 2L NC. VS STABLE. PATIENT RECOVERED ONCE BACK TO BED. WATER OFFERED. PATIENT DECLINED. DENIES ANY NEEDS OR CONCERNS. ENCOURAGED PATIENT TO REST. CALL LIGHT IN REACH. BED ALARM ACTIVE.
[2024-07-13 05:35] LABS: BASOPHILS 0.2 % (0-2); HEMATOCRIT 43.2 % (35.0-50.0); LYMPHOCYTES 3.7 % (24-44); MCH 30.9 (27-36); MCHC 32.5 g/dl (30-36); MCV 95.1 fl (81-99); MONOCYTES 5.5 % (0-12); NEUTROPHILS 90.6 % (39-80); PLATELET COUNT 110 K/uL (140-440); RBC 4.54 M/ul (4.3-5.7); RDW 13.9 (10.5-15.0)
[2024-07-13 05:52] LABS: ALBUMIN 2.6 g/dL (3.4-5.0); ALBUMIN/GLOBULIN RATIO 0.84 (1.1-2.4); BILIRUBIN, TOTAL 0.5 ng/dL (0.2-1.0); BUN/CREATININE RATIO 39.02 (6.0-28.6); CALCIUM 8.8 mg/dL (8.5-10.1); CREATININE, SERUM 0.82 mg/dL (0.70-1.30); MAGNESIUM 2.1 mg/dL (1.8-2.4); PHOSPHORUS, INORGANIC 3.2 mg/dL (2.5-4.9); PROTEIN, TOTAL 5.7 g/dL (6.4-8.2)
[2024-07-13 06:00] VITALS: BP 136/80
--- NOTE | 2024-07-13 06:26 | NUR ---
PATIENT UPDATE PROVIDED TO EKG DONE DUE TO RHYTHM CHANGES NOTED ON MONITOR. RESULTS REPORTS TO MD. PATIENT VS STABLE. RATE CONTROLED HR; A.FLUTTER 80'S. TOLERATING 2L NC. PATIENT APPEARS FLUSHED AND HAS BEEN MORE CONFUSED THAN PREVIOUS NIGHT. APPEARS SOB WITH ACTIVITY MORE THAN PREVIOUSLY NOTED. ORDERS FOR CHEST XRAY, TROPONIN, AND VBG RECEIVED.
[2024-07-13 06:39] LABS: PH, VENOUS 7.405 (7.31-7.41)
--- NOTE | 2024-07-13 07:30 | NUR ---
REPORT RECIVED FROM CLIENT PROJECT COORDINATOR RN. PATIENT WAS UP MOST OF THE NIGHT PER REPORT. PATIENT SLEEPING AT THIS TIME. WILL ALLOW PATIENT TO REST THIS MORNING D/T LIMITED SLEEP LAST NIGHT.
[2024-07-13 08:00] VITALS: BP 139/91
[2024-07-13] MEDS ORDERED: AZITHROMYCIN 250 MG TAB PO SCH (09:00)
[2024-07-13] MEDS ORDERED: METOPROLOL TARTRATE 50 MG TAB PO SCH (09:00)
--- NOTE | 2024-07-13 09:35 | NUR ---
PATIENT MEDICATIONS GIVEN. PATIENT AWAKE AND EATING BREAKFAST NOW, PATIENT ALERT AND ORIENTED THIS MORNING. PATIENT DENIES ANY OTHER NEEDS AT THIS TIME. CALL LIGHT IN REACH. BED ALARM ON FOR PATIENT SAFETY.
[2024-07-13 10:00] VITALS: BP 147/89
--- NOTE | 2024-07-13 10:24 | NUR ---
PT NOT AVAILABLE FOR VISIT. PROVIDED PRAYER.
--- NOTE | 2024-07-13 11:21 | NUR ---
SPOKE TO PATIENT ABOUT THE DISCHARGE PLAN. THE PATIENT WILL DISCHARGE TODAY ON OXYGEN. THE PATIENT'S SON IS COMING FROM [place] TO TAKE THE PATIENT HOME. CALLED [facility] AND NO ANSWER. NONPROFIT DIRECTOR LEFT A VOICE MAIL TO CALL BACK FOR [employer] TO CALL BACK.
[2024-07-13] MEDS ORDERED: CEFDINIR300 MG PO (11:42)
[2024-07-13] MEDS ORDERED: AZITHROMYCIN250 MG PO (11:42)
[2024-07-13] MEDS ORDERED: METOPROLOL TART50 MG PO (11:43)
--- NOTE | 2024-07-13 11:45 | NUR ---
PATIENT SITING UP IN BED AND EATING LUNCH. WILL CALL AND TLAK WITH PATIENTS ABOUT PLAN OF CARE.
[2024-07-13] MEDS ORDERED: PREDNISONE20 MG PO (11:46)
--- NOTE | 2024-07-13 13:58 | NUR ---
PATIENT RESTING IN BED AWAITING DC. REVIEWED PLAN OF CARE WITH PATIENT. HE IS READY TO GO HOME. CALL LIGHT IN REACH. NO OTHER NEEDS AT THIS TIME.
--- NOTE | 2024-07-13 15:15 | NUR ---
PATIENTS SON ARRIVED. NO CLOTHES WERE BROUGHT. GOT PATIENT DRESSED IN CLOTHES THAT PATIENT ARRIVED IN AND A SHIRT PROVIDED FROM HOSPITAL. ELECTROENCEPHALOGRAPH TECHNICIAN RN [facility] AND NON WERE AVAILABLE. PATIENTS SON IS GOING TO GO GET PRESCRIPTIONS WHILE AWAITING ARRIVAL OF OXYGEN.
--- NOTE | 2024-07-13 16:30 | NUR ---
PATIENTS SON BACK AT 1600. [facility] HERE AT 1630 AND PATIENT GIVEN RIDE TO FRONT VIA WHEELCHAIR WITH PATIENTS SON AND GREAT GRANDSON. MEDICATIONS WERE DISCUSSED WITH PATIENT AND PHARMACY CALLED AND SPOKE WITH PATIENTS ABOUT NEW MEDICATIONS. ALL QUESTIONS ANSWRED AND BELONGINS SENT WITH PATIENT.
--- NOTE | 2024-07-13 22:16 | EKG ---
[facility] [address] [place] [address] Signed Atrial flutter with 4:1 AV conduction Right bundle branch block Possible Inferior infarct , age undetermined Abnormal ECG When compared with ECG of 12-JUL-2024 14:33, Atrial flutter has replaced Sinus rhythm Confirmed by Zehra Wyman MD () on 07/13/2024 10:16:12 PM Electronically Signed By: ZEHRA WYMAN MD 07/13/24 2216 PATIENT NAME: SAUCEDOTANGELA Electrocardiogram DATE OF : 41 PHYSICIAN: ZEHRA WYMAN MD REPORT #: [id number] REPORT IS CONFIDENTIAL AND NOT TO BE RELEASED WITHOUT AUTHORIZATION
== END 2024-07-13 16:25 | disposition home or self-care (01) | DRG 193 ==
LOC: ED 14:38 → CCU 17:06
PROVIDERS: Emergency Medicine; Family Medicine; ADMIT Student in an Organized Health Care Education/Training Program; ATTEND Student in an Organized Health Care Education/Training Program
DX: J18.9 Pneumonia, unspecified organism (principal); J96.01 Acute respiratory failure with hypoxia; J44.1 Chronic obstructive pulmonary disease with (acute) exacerbation; J44.0 Chronic obstructive pulmonary disease with (acute) lower respiratory infection; I48.92 Unspecified atrial flutter; Z66 Do not resuscitate; R21 Rash and other nonspecific skin eruption; E03.9 Hypothyroidism, unspecified; D69.6 Thrombocytopenia, unspecified; I25.10 Atherosclerotic heart disease of native coronary artery without angina pectoris; I48.91 Unspecified atrial fibrillation; I10 Essential (primary) hypertension; I35.0 Nonrheumatic aortic (valve) stenosis; M54.50 Low back pain, unspecified; F17.210 Nicotine dependence, cigarettes, uncomplicated; Z98.890 Other specified postprocedural states; Z91.038 Other insect allergy status; Z79.899 Other long term (current) drug therapy
CPT/HCPCS: 36415; 71045; 71260; 80048; 80053; 81001; 82553; 82803; 83010; 83605; 83615; 83735; 84100; 84439; 84443; 84484; 85025; 85060; 85379; 85384; 85610; 85730; 87040; 87088; 87502; 93005; 93010; 93306; 94640; 94667; 94668; 94761; 94762; 94799; 97116; 97162; 97166; 97530; 97535; J0456; J0696; J2919; J7030; J7060; U0002

== ENCOUNTER 2024-11-15 16:38 | Emergency (ER) | payer OTHER, MEDICARE ==
[~2024-11-15] VITALS: Ht 177.8 cm; Wt 63.0 kg
[~2024-11-15 16:38] MED LIST changes: +ACULAR5 ML OS; +AZITHROMYCIN250 MG PO; +CEFDINIR300 MG PO; +FLOMAX0.4 MG PO; +METOPROLOL TART50 MG PO; +PRED FORTE5 ML OS; +PROAIR DIGIHAL90 MCG INH; +STIOLTO RESPIMAT4 G1 INH; +TOPROL XL25 MG PO; +TRAMADOL HCL50 MG PO; +VITAMIN D350 MC3 PO
--- OUTSIDE RECORDS SUMMARY | 2024-11-15 16:45 | XMS ---
PreManage Notification: TANGELA SAUCEDO Security Enamel Buffer Events No recent Security Events currently on file CRITERIA MET - Group Notification CARE PROVIDERS [facility]AGON Internal Medicine Current PHONE: [phone] [place] has no Care Guidelines for this patient. [place] VISIT COUNT (12 MO.) 4 RADHA Walsh TOTAL 4 NOTE: Visits indicate total known visits. ED/UCC VISIT TRACKING (12 MO.) 11/15/2024 16:39 RADHA Sharif [place] TYPE: Emergency COMPLAINT: - CHEST PAIN 07/10/2024 14:39 [facility] [place] TYPE: Emergency COMPLAINT: - COUGHING/RASH 04/27/2024 00:52 [facility] [place] TYPE: Emergency COMPLAINT: - RASH DIAGNOSES: - Bee allergy status - Chronic obstructive pulmonary disease, unspecified - Essential (primary) hypertension - Nicotine dependence, unspecified, uncomplicated - Other allergy status, other than to drugs and biological substances - Other fci (current) drug therapy - Pruritus, unspecified - [...] biological substances - Other fatigue - Other terminal makeup operator (current) drug therapy INPATIENT VISIT TRACKING (12 MO.) 07/10/2024 17:06 RAD[facility] [place] TYPE: Critical Care COMPLAINT: - PNEUMONIA,COPD EXACERBATION DIAGNOSES: - Acute respiratory failure with hypoxia - Acute respiratory failure with hypoxia - Atherosclerotic heart disease of [place] coronary artery without angina pectoris - Atherosclerotic heart disease of [place] coronary artery without angina pectoris - Chronic obstructive pulmonary disease with (acute) exacerbation - Chronic obstructive pulmonary disease with (acute) exacerbation - Chronic obstructive pulmonary disease with (acute) lower respiratory infection - Chronic obstructive pulmonary disease with (acute) lower respiratory infection - Do not resuscitate - Essential (primary) hypertension - Essential (primary) hypertension - Hypothyroidism, unspecified - Hypothyroidism, unspecified - Low back pain, unspecified - Low back pain, unspecified - Nicotine dependence, cigarettes, uncomplicated - Nicotine dependence, cigarettes, uncomplicated - Nonrheumatic aortic (valve) stenosis - Nonrheumatic aortic (valve) stenosis - Other insect allergy status - Other insect allergy status - Other fci (current) drug therapy - Other terminal makeup operator (current) drug therapy - Other specified postprocedural states - Other specified postprocedural states - Pneumonia, unspecified organism - Rash and other nonspecific skin eruption - Rash and other nonspecific skin eruption - Thrombocytopenia, unspecified - Thrombocytopenia, unspecified - Unspecified atrial fibrillation - Unspecified atrial fibrillation - Unspecified atrial flutter - Unspecified atrial flutter [id number]
[2024-11-15 17:00] LABS: RDW 13.9 (10.5-15.0)
[2024-11-15] MEDS ORDERED: methylPREDNISolone SOD SUCC 125 MG/2 ML VIAL IV ONE (17:00)
[2024-11-15] MEDS ORDERED: ALBUTEROL/IPRATROPIUM 3 ML NEB INH ONE (17:00)
[2024-11-15 17:03] LABS: HEMATOCRIT 47.3 % (35.0-50.0); HEMOGLOBIN 15.9 g/dL (12.0-18.0); MCH 30.8 (27-36); MCHC 33.6 g/dl (30-36); MCV 91.7 fl (81-99); PLATELET COUNT 130 K/uL (140-440); RBC 5.16 M/ul (4.3-5.7)
[2024-11-15 17:13] LABS: BANDS, MANUAL DIFF 12; LYMPHOCYTES, MANUAL DIFF 8; MONOCYTES, MANUAL DIFF 4; NEUTROPHILS, MANUAL DIFF 76
[2024-11-15 17:16] LABS: ALBUMIN 3.4 g/dL (3.4-5.0); ALBUMIN/GLOBULIN RATIO 0.97 (1.1-2.4); ANION GAP 9.1 (7-21); BILIRUBIN, TOTAL 0.8 ng/dL (0.2-1.0); BUN/CREATININE RATIO 22.22 (6.0-28.6); CALCIUM 8.8 mg/dL (8.5-10.1); CREATININE, SERUM 0.99 mg/dL (0.70-1.30); POTASSIUM 4.1 mmol/L (3.5-5.1); PROTEIN, TOTAL 6.9 g/dL (6.4-8.2)
[2024-11-15 17:36] LABS: CORONAVIRUS COVID-19 AG NEGATIVE (NEGATIVE); INFLUENZA A AG NEGATIVE (NEGATIVE); INFLUENZA B AG NEGATIVE (NEGATIVE)
[2024-11-15 18:01] VITALS: BP 137/72
--- NOTE | 2024-11-16 21:53 | EKG ---
[facility] [address] [place] [address] Signed Sinus rhythm with premature atrial complexes Possible Left atrial enlargement Right bundle branch block Abnormal ECG When compared with ECG of 13-JUL-2024 06:06, Sinus rhythm has replaced Atrial flutter Confirmed by Iliana Roldan DO ([id number]) on 11/16/2024 9:52:57 PM Electronically Signed By: ILIAAN ROLDAN DO [id number]/16/[id number] PATIENT NAME: TANGELA SAUCEDO Electrocardiogram DATE OF : 41 PHYSICIAN: ILIANA ROLDAN DO REPORT #: [id number] REPORT IS CONFIDENTIAL AND NOT TO BE RELEASED WITHOUT AUTHORIZATION
== END 2024-11-15 18:01 | disposition home or self-care (01) ==
LOC: ED 16:38
PROVIDERS: Emergency Medicine
DX: R07.89 Other chest pain (principal); J44.9 Chronic obstructive pulmonary disease, unspecified; F03.90 Unspecified dementia, unspecified severity, without behavioral disturbance, psychotic disturbance, mood disturbance, and anxiety; I10 Essential (primary) hypertension; Z91.030 Bee allergy status; Z91.048 Other nonmedicinal substance allergy status; Z79.01 Long term (current) use of anticoagulants; Z79.899 Other long term (current) drug therapy
CPT/HCPCS: 36415; 71045; 80053; 83880; 84484; 85025; 87502; 93005; 93010; 94640; 96374; 99285-25; J2919; U0002